=== PATIENT | male | born 1945 | race Caucasian/White ===

== ENCOUNTER 2022-01-01 09:00 | Day surgery (SDC) | payer MEDICARE, SELFPAY ==
[2022-01-01] VITALS (12 sets, daily range): BP systolic 66–122; BP diastolic 50–73; PULSE 62–91; RESP 14–18; TEMP 36.4–36.8; O2SAT 95–99; BMI 29.4
--- NOTE | 2022-01-01 | GASB_PTH ---
PATIENT: ENRIQUE MCGILL LOC: EN U#:[id number] AGE/SX: 76/M ROOM: RE01/01/[address]: Dr. Stuart Leos MD : 1945 BED: DIS: 01/01/2022 SPEC #: [id number] RECD: 01/01/22 10:49 STATUS: EDUARDO FINLEY #: [id number] [place]: 01/01/22 00:[address]: Stuart Leos DEPT: SURGICAL PATHOLOGY RECD BY: Ignacio Koehler ENTERED: 01/01/22 10:49 SP TYPE: Gastric Bx OTHR DR: Leti Villatoro, RUDOLPH Tissues: Gastric mucous membrane Procedures: Surgery Specimen Level IV HEADER OPERATION: Colonoscopy, EGD ([place]) with biopsies PRE-OP DIAGNOSIS: Blood per rectum TISSUE SUBMITTED: Antrum biopsy for H. pylori and path MICROSCOPIC DIAGNOSIS Antrum, biopsy: Mild gastritis. See microscopic description and comment. SJ:bryon 01/02/2022 COMMENT The results of immunohistochemistry for Helicobacter pylori will be reported separately ([id number]). MICROSCOPIC DESCRIPTION Slides are reviewed. The specimen shows fragments of gastric mucosa with chronic inflammatory cell infiltrates in the lamina propria consisting of lymphocytes and plasma cells, consistent with mild chronic gastritis. GROSS DESCRIPTION Received in fixative is one container labeled with the patient's name and designated antrum biopsy. The specimen consists of one irregular fragment of light plummer soft tissue that measures 0.5 x 0.2 x 0.1 cm. The specimen is totally submitted in one cassette. / TAYLOR:bryon 01/01/2022 TC:3 CPT: 45705
[2022-01-01] MEDS: Lactated Ringers 1,000 ML 15 ML IV ×2 (09:20→11:06)
--- NOTE | 2022-01-01 09:25 | HP.PCM_ITS ---
History and Physical Date of Admission: 01/01/22 Intake Vital Signs ? 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 Required: No Is patient in pain?: No Allergies No Known Allergies Allergy (Verified 12/29/21 14:16) Medications amoxicillin 500 mg capsule 500 mg PO TID 12/29/21 [History Confirmed 12/29/21] cyclobenzaprine 10 mg tablet 10 mg PO TID 12/29/21 [History] dapagliflozin 10 mg tablet (Farxiga) 10 mg PO DAILY 12/29/21 [History Confirmed 12/29/21] glimepiride 4 mg tablet mg PO 12/29/21 [History Confirmed 12/29/21] lisinopril 20 mg-hydrochlorothiazide 12.5 mg tablet tab PO 12/29/21 [History Confirmed 12/29/21] metformin 500 mg tablet,extended release 24 hr ea PO 12/29/21 [History Confirmed 12/29/21] naproxen 500 mg tablet 500 mg PO BID 12/29/21 [History] PFS Medical History?(Updated 12/29/21 @ 14:17 by Ne Vee) Diabetes mellitus Hiatal hernia History of colon polyps History of diverticulosis History of rectal cancer History of renal calculi HTN (hypertension) Hyperlipidemia Neuropathy Sleep apnea Surgical History?(Updated 12/29/21 @ 14:19 by Ne Vee) History of arthroscopic knee surgery History of cholecystectomy History of colonoscopy (~2018) History of colonoscopy (~2007) History of esophagogastroduodenoscopy (EGD) History of foot surgery History of nephrolithotomy with removal of calculi Status post ORIF of fracture of ankle Family History? Mother Hypertension Breast cancerFather Colon cancer Social History? Smoking Status:? Never smoker HPI HPI HPI: 76-year-old male with rectal bleeding.? The patient reports that he has been having copious bright red blood per rectum and this sometimes happens without even a bowel movement.? He reports that he stopped NSAIDs and the blood has become dark but he is also having dark stools as well.? He denies abdominal pain.? Patient has last colonoscopy about 3 years ago and found a rectal polyp.? According to records the patient had a rectal carcinoid in 2007. ROS General General: No weight change or fatigue HEENT HEENT: No difficulty swallowing Endo Endocrine: Yes diabetes mellitus; No thyroid disease Musc Musculoskeletal: Yes arthritis; No back problems Cardio Cardiovascular: Yes high blood pressure; No pacemaker, heart disease, atrial fibrillation, heart attack, heart stent, palpitations or chest pain Psych Psychiatric: No depression or anxiety Resp Respiratory: No shortness of breath, No cough, No COPD, No asthma and No emphysema Gastro Gastrointestinal: No abdominal pain, No nausea or vomiting, Yes diarrhea, No constipation, Yes blood in stool, No acid reflux, No hemorrhoids, No ulcers, No gallbladder problem and Yes black,tarry stools Alphonse Hematologic: No blood thinners Assessment and Plan Assessment and Plan (1) Blood per rectum: ?Status:?Acute ?Plan: Patient describes bright and dark blood per rectum.? Patient does have family history of colon cancer.? I recommend upper and lower endoscopy.? I explained endoscopy in detail to the patient.? I explained the risks including but not limited to stroke or heart attack with anesthesia, perforation of the GI tract, bleeding, infection.? I explained that any of these could necessitate further emergency surgery.? The patient understands and all questions were answered suf ficiently.? The patient wishes to proceed with procedure. Stuart Leos MD Pager: [facility] [address] [place] [address], [address] [place] [address] Office: I have re-examined the patient. There are no clinical changes since date of exam.
[2022-01-01 10:11] LABS: Bedside Glucose 165 mg/dL (74-106)
--- NOTE | 2022-01-01 10:15 | IMM_PTH ---
PATIENT: ENRIQUE MCGILL LOC: EN U#:[id number] AGE/SX: 76/M ROOM: RE01/01/[address]: Dr. Stuart Leos MD : 1945 BED: DIS: 01/01/2022 SPEC #: [id number] RECD: 01/01/22 11:27 STATUS: EDUARDO TUSHAR #: [id number] [place]: 01/01/22 10:[address]: Stuart Leos DEPT: IMMUNOHISTOCHEMISTRY RECD BY: Laila Walton ENTERED: 01/01/22 11:28 SP TYPE: IMMUNO OTHR DR: Leti Villatoro, VOCATIONAL INSTRUCTOR-C Tissues: Stomach, NOS Procedures: H Pylori (initial) PHYSICIAN & INSTITUTION [place] [id number] SPECIMEN INFORMATION: Tissue Source: Antrum biopsy Clinical Info: Blood per rectum Specimen Number: [id number] CPT code: 33183 METHODOLOGY: Deparaffinized sections of prefer/formalin-fixed tissue or PAP/DQ stained slides are incubated with monoclonal/polyclonal antibodies/oligonucleotide probes. Localization is made via biotin free immunoperoxidase method. Appropriate controls are performed and reacted as expected. Results on target cell population are indicated in the following table: RESULTS: ANTIBODY / CLONE RESULT H Pylori (polyclonal) negative These tests were developed and their performance characteristics determined by [facility]. They may not have been cleared or approved by the U.S. Food and Drug Administration. The FDA has determined that such clearance or approval is not necessary. The above immunohistochemical/dualISH markers are ordered and reviewed by the Pathologist. INTERPRETATION: Antrum, biopsy: Negative for Helicobacter pylori organisms. TAYLOR:bryon 01/02/2022
--- NOTE | 2022-01-01 10:31 | OP.CCLET_ITS ---
01/01/2022 Leti Villatoro Re : Colonoscopy procedure for Gonzalez Sanders Irving This procedure was performed on Saturday, January 01, 2022. My impressions and recommendations are as follows: Impressions : - The entire examined colon is normal on direct and retroflexion views. - No specimens collected. Recommendations : - Discharge patient to home. - Resume previous diet. - Continue present medications. - Repeat colonoscopy is not recommended due to current age (66 years or older) for screening purposes. My findings are described in the full procedure note, which is enclosed. If I can be of further assistance, please feel free to contact me at Doctor phone number(s): , Work: . Sincerely, Stuart Leos MD 01/01/2022 10:30:51 AM This report has been signed electronically.
--- NOTE | 2022-01-01 10:31 | OP.COLON_ITS ---
Patient Name: Gonzalez Pressley Procedure Date: 01/01/2022 10:14 AM Date of : 1945 Age: 76 Procedure: Colonoscopy Indications: Hematochezia Providers: Stuart Leos MD Referring MD: Leti Villatoro Medicines: Monitored Anesthesia Care Patient Profile: This is a 76 year old male. Refer to note in patient chart for documentation of history and physical. Last Colonoscopy: none. The patient's first colonoscopy is today. Complications: No immediate complications. Procedure: Pre-Anesthesia Assessment: - Prior to the procedure, a History and Physical was performed, and patient medications and allergies were reviewed. The patient's tolerance of previous anesthesia was also reviewed. The risks and benefits of the procedure and the sedation options and risks were discussed with the patient. All questions were answered, and informed consent was obtained. Prior Anticoagulants: The patient has taken no previous anticoagulant or antiplatelet agents. After reviewing the risks and benefits, the patient was deemed in satisfactory condition to undergo the procedure. After I obtained informed consent, the scope was passed under direct vision. Throughout the procedure, the patient's blood pressure, pulse, and oxygen saturations were monitored continuously. The was introduced through the anus and advanced to the cecum, identified by appendiceal orifice and ileocecal valve. The colonoscopy was performed without difficulty. The patient tolerated the procedure well. The quality of the bowel preparation was good. Scope In: 10:15:48 AM Scope Withdrawal Time 0 hours 4 minutes 12 seconds Scope Out: 10:22:12 AM Total Procedure Duration Time 0 hours 6 minutes 24 seconds Findings: The entire examined colon appeared normal on direct and retroflexion views. Many small and large-mouthed diverticula were found in the entire colon. Impression: - The entire examined colon is normal on direct and retroflexion views. - No specimens collected. Recommendation: - Discharge patient to home. - Resume previous diet. - Continue present medications. - Repeat colonoscopy is not recommended due to current age (66 years or older) for screening purposes. Procedure Code(s): --- Professional --- 74942, Colonoscopy, flexible; diagnostic, including collection of specimen(s) by brushing or washing, when performed (separate procedure) Diagnosis Code(s): --- Professional --- K92.1, Melena (includes Hematochezia) CPT copyright 2017 [employer]. All rights reserved. The codes documented in this report are preliminary and upon programming manager review may be revised to meet current compliance requirements. Stuart Leos MD 01/01/2022 10:30:51 AM This report has been signed electronically. Number of Addenda: 0 Note Initiated On: 01/01/2022 10:14 AM
--- NOTE | 2022-01-01 10:33 | OP.EGD_ITS ---
Patient Name: Gonzalez Pressley Procedure Date: 01/01/2022 10:03 AM Date of : 1945 Age: 76 Procedure: Upper GI endoscopy Indications: Hematochezia Providers: Stuart Leos MD Referring MD: Leti Villatoro Medicines: Monitored Anesthesia Care Patient Profile: This is a 76 year old male. Refer to note in patient chart for documentation of history and physical. Complications: No immediate complications. Procedure: Pre-Anesthesia Assessment: - Prior to the procedure, a History and Physical was performed, and patient medications and allergies were reviewed. The patient's tolerance of previous anesthesia was also reviewed. The risks and benefits of the procedure and the sedation options and risks were discussed with the patient. All questions were answered, and informed consent was obtained. Prior Anticoagulants: The patient has taken no previous anticoagulant or antiplatelet agents. After reviewing the risks and benefits, the patient was deemed in satisfactory condition to undergo the procedure. After obtaining informed consent, the endoscope was passed under direct vision. Throughout the procedure, the patient's blood pressure, pulse, and oxygen saturations were monitored continuously. The gastroscope was introduced through the mouth, and advanced to the second part of duodenum. The upper GI endoscopy was accomplished without difficulty. The patient tolerated the procedure well. Scope In: 10:11:06 AM Scope Out: 10:13:44 AM Total Procedure Duration Time 0 hours 2 minutes 38 seconds Findings: The esophagus was normal. The examined duodenum was normal. One non-bleeding cratered gastric ulcer with no stigmata of bleeding was found in the gastric antrum. Biopsies were taken with a cold forceps for Helicobacter pylori testing. Impression: - Normal esophagus. - Normal examined duodenum. - Non-bleeding gastric ulcer with no stigmata of bleeding. Biopsied. Recommendation: - Discharge patient to home. - Resume previous diet. - Continue present medications. - Use Prilosec (omeprazole) 40 mg PO daily for 8 weeks. - Use sucralfate tablets 1 gram PO QID for 2 weeks. Procedure Code(s): --- Professional --- 31310, Esophagogastroduodenoscopy, flexible, transoral; with biopsy, single or multiple Diagnosis Code(s): --- Professional --- K25.9, Gastric ulcer, unspecified as acute or chronic, without hemorrhage or perforation K92.1, Melena (includes Hematochezia) CPT copyright 2017 [employer]. All rights reserved. The codes documented in this report are preliminary and upon materials handling equipment operator review may be revised to meet current compliance requirements. Stuart Leos MD 01/01/2022 10:33:06 AM This report has been signed electronically. Number of Addenda: 0 Note Initiated On: 01/01/2022 10:03 AM
--- NOTE | 2022-01-01 10:33 | OP.CCLET_ITS ---
01/01/2022 Leti Villatoro Re : Upper GI endoscopy procedure for Gonzalez Villatoro This procedure was performed on Saturday, January 01, 2022. My impressions and recommendations are as follows: Impressions : - Normal esophagus. - Normal examined duodenum. - Non-bleeding gastric ulcer with no stigmata of bleeding. Biopsied. Recommendations : - Discharge patient to home. - Resume previous diet. - Continue present medications. - Use Prilosec (omeprazole) 40 mg PO daily for 8 weeks. - Use sucralfate tablets 1 gram PO QID for 2 weeks. My findings are described in the full procedure note, which is enclosed. If I can be of further assistance, please feel free to contact me at Doctor phone number(s): , Work: . Sincerely, Stuart Leos MD 01/01/2022 10:33:06 AM This report has been signed electronically.
== END 2022-01-01 12:07 | disposition home or self-care (01) ==
LOC: EN 09:03 → AC 09:06
PROVIDERS: PCP Nurse Practitioner Adult Health; Referring Provider Nurse Practitioner Adult Health; Visit Provider Surgery
PROC: 0DJD8ZZ Inspection of Lower Intestinal Tract, Via Natural or Artificial Opening Endoscopic (ICD-10-PCS; CPT 45378; principal; 2022-01-01 10:10)
DX: K29.50 Unspecified chronic gastritis without bleeding (principal); E11.9 Type 2 diabetes mellitus without complications; K57.30 Diverticulosis of large intestine without perforation or abscess without bleeding; K25.9 Gastric ulcer, unspecified as acute or chronic, without hemorrhage or perforation; G47.30 Sleep apnea, unspecified; I10 Essential (primary) hypertension; K92.1 Melena; Z79.899 Other long term (current) drug therapy; Z79.84 Long term (current) use of oral hypoglycemic drugs; Z80.0 Family history of malignant neoplasm of digestive organs
CPT/HCPCS: 43239; 45378; 82962; 88305; 88342; J7120; J2405

== ENCOUNTER 2024-06-09 16:00 | Inpatient (IN) | payer MEDICARE, SELFPAY ==
[2024-06-09] VITALS (7 sets, daily range): BP systolic 114–176; BP diastolic 66–88; PULSE 62–74; RESP 12–18; TEMP 36.3–36.8; O2SAT 94–98; BMI 29.7; BMI 28.9
[2024-06-09 19:14] LABS: Absolute Lymphocyte Count 0.99 X10^3/uL (0.83-4.51); Absolute Neutrophil Count 3.3 X10^3/uL (2.0-7.7); Basophil# 0.03 X10^3/uL; Basophil% 0.6 % (0-1); Eosinophil# 0.08 X10^3/uL; Eosinophils% 1.6 % (0-5); Hematocrit 49.1 % (40-54); Hemoglobin 16.5 g/dL (13.0-16.5); Lymphocyte # 0.99 X10^3/ul (0.83-4.51); Lymphocyte % 20.4 % (19-41); Mean Corp Hgb Conc 33.6 g/dL (32-36); Mean Corpuscular Hgb 30.1 pg (27.0-32.0); Mean Corpuscular Volume 89.4 fL (80-94); Mean Platelet Vol. 8.9 fl (6.2-12.0); Monocyte# 0.45 X10^3/uL; Monocyte% 9.3 % (0-10); NRBC Flagged by Analyzer 0 % (0-5); Neutrophil # 3.29 X10^3/uL (2.7-7.7); Neutrophil % 67.9 % (47-70); Platelet Count 196 K/mm3 (150-450); RBC Distribution Width SD 42.5 fl (35.1-43.9); Red Blood Count 5.49 M/mm3 (4.6-6.2); White Blood Count 4.9 K/mm3 (4.4-11.0)
[2024-06-09 19:46] LABS: Anion Gap 13 (5-15); BUN 21 mg/dL (4-19); BUN/Creat Ratio 18.2 RATIO (10-20); Calcium 9.4 mg/dL (7.6-11.0); Carbon Dioxide 23.2 mmol/L (22.0-29.0); Chloride 96 mmol/L (96-108); Creatinine, Serum 1.2 mg/dL (0.8-1.3); EST Glomerular Filtration Rate 65 (>60); Estimated Creatinine Clearance 54.06 ml/min; Glucose 119 mg/dL (70-99); Potassium 4.6 mmol/L (3.3-5.1); Sodium Level 133 mmol/L (133-145)
--- NOTE | 2024-06-09 20:06 | RAD_ITS ---
PROCEDURE: FOOT MIN 3 VIEWS REASON FOR EXAM: Pain; right foot infection. TECHNIQUE: 3 view(s) of the right foot COMPARISON: None. FINDINGS: RIGHT FOOT: No visible fracture. No suspicious bone lesion. No significant osseous erosions. Possible dislocation of the 2nd metatarsophalangeal joint which may be due to the angulation of the radiograph. Correlate with mechanism and physical examination. Soft tissues are unremarkable. 1st metatarsophalangeal joint fixation. RAD/Foot min 3 Views IMPRESSION: No evidence of acute fracture or significant erosions. Possible 2nd metatarsophalangeal joint dislocation versus radiograph angle. De tails above. Reading Location: [place] [id number]
--- NOTE | 2024-06-09 20:16 | EX.ED.DYSGE1 ---
HPI History of Present Illness Chief Complaint: Wound Narrative Narrative: Chief complaint and HPI: Right second toe infection. 78-year-old male with past medical history of right first toe surgery, DM, HTN presents for evaluation of right second toe infection. Patient states that he has been following with podiatry Dr. Smith for chronic right second toe pain. He states that his pain was thought to be caused from an artificial joint in the right first toe that is pushing on the second toe. Over the past several weeks he has had increased pain and swelling in the toe. He states that he got an outpatient MRI that showed infection of the toe. He states that he was referred to infectious disease Dr. Drummond. He states that he sent him here today for IV antibiotics and admission to the hospital. He denies any fever, chills, nausea, vomiting, numbness, tingling. He states he has had some increased redness over the past 2 days in the foot. Review of systems: See HPI Medications: As listed on the chart Allergies: As listed on the chart PFSH: Per chart Vital signs: As listed on the chart. Reviewed. Physical exam: Gen: A&O x3, NAD Head: Normocephalic, atraumatic Eyes: No sclera icterus, conjunctiva clear ENT: Moist mucous membranes Neck: Trachea midline, No JVD CV: RRR, no murmurs, no peripheral edema Resp: Lungs CTA BL, no w/r/c GI: Abd soft, non-distended, non-tender, no r/r/g Musc: Full ROM, no deformity, right second toe is mildly tender to palpation and mildly swollen, mild erythema of the toe extending up into the foot, no crepitus or bullae, no wound or drainage, DP/PT plus 2 out of 4, compartments soft, good capillary refill, callus on the plantar surface of the foot -does not appear infected Skin: Warm, dry Neuro: Alert, oriented, grossly intact, sensation intact Psych: Cooperative, appropriate mood and affect [facility] Medical History History of renal calculi History of rectal cancer Neuropathy Hiatal hernia Sleep apnea History of diverticulosis History of colon polyps Hyperlipidemia HTN (hypertension) Diabetes mellitus Home Medications ?Medication ?Instructions ?Recorded ?Last Taken ?Type dapagliflozin propanediol 10 mg 10 mg PO DAILY 12/29/21 Unknown History tablet (Farxiga) lisinopril 20 1 tab PO DAILY 12/29/21 Unknown History mg-hydrochlorothiazide 12.5 mg tablet metformin 500 mg tablet,extended 500 ea PO DAILY 12/29/21 Unknown History release 24 hr glimepiride 2 mg tablet 2 mg PO DAILY 06/09/24 Unknown History sulfamethoxazole 800 1 tab PO Q12.TCU 06/09/24 Unknown History mg-trimethoprim 160 mg tablet Allergy/AdvReac Type Severity Reaction Status Date / Time No Known Allergies Allergy Verified 06/09/24 19:20 Family History Mother Hypertension Breast cancer Father Colon cancer Surgical History History of colonoscopy (~2007) Status post ORIF of fracture of ankle History of foot surgery History of arthroscopic knee surgery History of nephrolithotomy with removal of calculi History of esophagogastroduodenoscopy (EGD) History of cholecystectomy History of colonoscopy (~2018) Social History Smoking Status: Never smoker EXAM Physical Exam Const Vital Signs: 06/09/24 16:03 06/09/24 19:10 06/09/24 20:00 Temperature 98.3 F 98.2 F Temperature Source Oral Oral Pulse Rate 67 73 63 Respiratory Rate 18 16 16 Blood Pressure 155/80 H 176/84 H 144/88 H Blood Pressure Mean 105 114 106 Pulse Ox 96 98 98 Oxygen Delivery Method Room Air Room Air 06/09/24 20:50 06/09/24 21:00 06/09/24 22:00 Temperature 97.4 F L 97.8 F 97.8 F Temperature Source Oral Oral Pulse Rate 62 67 74 Respiratory Rate 12 16 16 Blood Pressure 148/88 H 121/67 H 114/72 Blood Pressure Mean 108 85 86 Pulse Ox 97 97 97 Oxygen Delivery Method Room Air Room Air MDM MDM MDM Narrative Medical decision making narrative: 78-year-old male with past medical history of right first toe surgery, DM, HTN presents for evaluation of right second toe infection. Patient states that he had an outpatient MRI that showed infection. He has the disc available but no read. On chart review, I do not have the MRI or his previous x-ray of his foot. I spoke with radiology who will upload the MRI in our system. Differential diagnosis includes but is not limited to osteomyelitis, cellulitis, bacteremia. Basic labs ordered including blood cultures. Will contact Dr. Drummond. Dr. Drummond stated that the patient was referred to his office today for MRI that showed osteomyelitis. Patient has been on Bactrim for 1 week. Patient endorsed increased pain and redness over the past 2 days so infectious disease recommendations were admission to the hospital with IV antibiotics and podiatry for possible surgery. Given this new information, vancomycin and Zosyn ordered. CBC without leukocytosis or anemia. Lactic acid unremarkable. X-ray of the foot was personally reviewed by me, ED physician. No fracture or dislocation. Per radiology, no significant osseous erosions. Possible dislocation of the second metatarsal phalangeal joint which may be due to the angulation of the radiograph. This does not correlate with patient's physical exam. Patient will warrant admission for IV antibiotics and podiatry consult. Patient updated of all her results and confirmed understanding of the plan. Patient was discussed with Dr. Lindsey accepted admission. Impression: 1. Osteomyelitis of the right second toe Lab Data Labs: Laboratory Results - last 24 hr 06/09/24 06/09/24 19:10 20:15 WBC 4.9 RBC 5.49 Hgb 16.5 Hct 49.1 MCV 89.4 MCH 30.1 MCHC 33.6 RDW Std Deviation 42.5 RDW Coeff of Chad 13.0 Plt Count 196 MPV 8.9 Immature Gran % (Auto) 0.200 Neut % (Auto) 67.9 Lymph % (Auto) 20.4 Zapata % (Auto) 9.3 Eos % (Auto) 1.6 Baso % (Auto) 0.6 Absolute Neuts (auto) 3.3 Absolute Lymphs (auto) 0.99 Nucleated RBC % 0 Sodium 133 Potassium 4.6 Anion Gap 13 BUN 21 H Creatinine 1.2 Estim Creat Clear Calc 54.06 Est GFR (MDRD) Non-Af 65 BUN/Creatinine Ratio 18.2 Glucose 119 H Lactic Acid < 1.0 Calcium 9.4 Magnesium 2.2 Radiography Diagnostic Testing: Clinical Impression(s) from Imaging Studies Foot X-Ray 06/09/24 20:06 IMPRESSION: No evidence of acute fracture or significant erosions. Possible 2nd metatarsophalangeal joint dislocation versus radiograph angle. Details above. Reading Location: [id number] Discharge Plan Disposition Disposition: Acute Care Hospital [facility] Discharge Date/Time: 06/09/24 23:04
[2024-06-09] MEDS: 0.9% Normal Saline (1000mL) 1,000 ML 1000 ML IV (20:20)
[2024-06-09] MEDS: Piperacil/Tazobactam 4.5 GM in 0.9% Normal Saline (100mL MB+) 100 ML IV (20:49)
[2024-06-09 21:31] LABS: Lactic Acid < 1.0 mmol/L (0.0-2.0)
[2024-06-09] MEDS: Vancomycin HCl 2,000 MG in 0.9% Normal Saline (500mL Bag) 500 ML 250 MG IV (21:46)
--- NOTE | 2024-06-09 22:13 | PCM.HP.STD ---
[facility] - General General Date of Admission: 06/09/24 Date of Service: 06/09/24 Chief Complaint: Right 2nd Toe Wound with Osteomyelitis and Septic Arthritis. HPI Narrative ENRIQUE PRESSLEY, is a 78 M with a past medical history of essential hypertension; on lisinopril-hydrochlorothiazide, hyperlipidemia; currently untreated, overweight; with BMI of 29.8 this admission, FAUSTINO; on CPAP, DM-2; of unknown control on metformin, glimepiride and dapagliflozin, diabetic neuropathy, history of artificial joint placement in the great toe of the Right foot, history of ankle fracture; s/p ORIF, history of arthroscopic knee surgery, history of rectal cancer, history of rectal bleed (2021), history of diverticulosis, history of colon polyps, history of hiatal hernia, history of nephrolithotomy; with removal of calculi, history of cholecystectomy and history of Right 2nd toe infection; on TMP-SMX BID, followed by Dr. Troncoso of podiatry with a recent office visit to Dr. Drummond of infectious disease who instructed the patient to come to the ER for IV antibiotics and admission to the hospital. Mr. 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 Unfortunately, the pain continued to worsen with increasing redness and swelling of the 2nd toe and he was then sent for an MRI which allegedly revealed evidence of osteomyelitis and septic arthritis resulting in him being sent in for further evaluation and treatment. He denies associated fever, chills, nausea, vomiting, diarrhea, constipation, abdominal pain, chest pain, SOB, headache or paresthesias. In the ER he was diagnosed with Right 2nd Toe Osteomyelitis and Septic Arthritis and he was then admitted to the general medical floor for ongoing care for a stay that is expected to extend beyond 2 midnights. [facility] Medical History History of renal calculi History of rectal cancer Neuropathy Hiatal hernia Sleep apnea History of diverticulosis History of colon polyps Hyperlipidemia HTN (hypertension) Diabetes mellitus Home Medications ?Medication ?Instructions ?Recorded ?Last Taken ?Type dapagliflozin propanediol 10 mg 10 mg PO DAILY 12/29/21 Unknown History tablet (Farxiga) lisinopril 20 1 tab PO DAILY 12/29/21 Unknown History mg-hydrochlorothiazide 12.5 mg tablet metformin 500 mg tablet,extended 500 ea PO DAILY 12/29/21 Unknown History release 24 hr glimepiride 2 mg tablet 2 mg PO DAILY 06/09/24 Unknown History sulfamethoxazole 800 1 tab PO Q12.TCU 06/09/24 Unknown History mg-trimethoprim 160 mg tablet Allergy/AdvReac Type Severity Reaction Status Date / Time No Known Allergies Allergy Verified 06/09/24 19:20 Family History Mother Hypertension Breast cancer Father Colon cancer Surgical History History of colonoscopy (~2007) Status post ORIF of fracture of ankle History of foot surgery History of arthroscopic knee surgery History of nephrolithotomy with removal of calculi History of esophagogastroduodenoscopy (EGD) History of cholecystectomy History of colonoscopy (~2018) Social History Smoking Status: Never smoker ROS ROS Narrative Review of Systems: Constitutional: Patient denies fever or chills. Eyes: Patient denies changes in vision or discharge from eyes. ENT: Patient denies runny nose, sore throat or ear pain. Resp: Patient denies SOB or cough. CV: Patient denies chest pain, palpitations or heart racing. GI: Patient denies abdominal pain, nausea, vomiting, diarrhea or constipation. : Patient denies dysuria or hematuria. MSK: Patient admits to pain from his Right 2nd toe. Skin: Patient admits to swelling and erythema of the Right 2nd toe with pain made worse with palpation or movement. Psych: Patient denies symptoms of uncontrolled depression or anxiety. Neuro: Patient denies headache, paresthesias or focal neurologic deficits. Allergy: Patient denies lip swelling, tongue swelling or urticaria. Hematology: Patient denies easy bleeding or easy bruisability. Endocrinology: Patient denies polyuria, polydipsia or polyphagia. 14 point ROS otherwise negative except for positives noted above in HPI. Vital Signs Vital Signs Vital Signs: 06/09/24 16:03 06/09/24 19:10 06/09/24 20:00 Temperature 98.3 F 98.2 F Temperature Source Oral Oral Pulse Rate 67 73 63 Respiratory Rate 18 16 16 Blood Pressure 155/80 H 176/84 H 144/88 H Blood Pressure Mean 105 114 106 Pulse Ox 96 98 98 Oxygen Delivery Method Room Air Room Air 06/09/24 20:50 06/09/24 21:00 Temperature 97.4 F L 97.8 F Temperature Source Oral Pulse Rate 62 67 Respiratory Rate 12 16 Blood Pressure 148/88 H 121/67 H Blood Pressure Mean 108 85 Pulse Ox 97 97 Oxygen Delivery Method Room Air Weight Weight: 190 lb Body Mass Index (BMI) 29.7 Physical Exam Const alert, oriented x3, no apparent distress and average body habitus General Appearance: cooperative HEENT normocephalic, head/scalp atraumatic, hearing grossly normal bilaterally and moist oral mucous membranes Eyes PERRL, EOMs intact bilaterally and conjunctivae normal Neck no lymphadenopathy, supple and no JVD Resp normal respiratory effort, no retractions, no use of accessory muscles and clear to auscultation bilaterally Cardio regular rate and regular rhythm GI normal to inspection, nondistended, normoactive bowel sounds, soft to palpation, non-tender and non-distended Extremity Extremity Narrative: Right 2nd toe is erythematous and edematous with TTP and mild erythema extending up into the foot with no open wound or drainage and 2+/4 pulses throughout. Skin Skin Narrative: Right 2nd toe is erythematous and edematous with TTP and mild erythema extending up into the foot with no open wound or drainage and 2+/4 pulses throughout. Neuro oriented x3, CN's II-XII intact bilaterally, moves all extremities and no focal motor deficits Sensorium / Orientation: awake, alert, oriented to person, oriented to place and oriented to time Speech: speech normal Psych affect normal Results Medical Records Data Attestation: I reviewed the patient's medical records Lab / Micro Data Attestation: I reviewed the patient's lab results. 06/09/24 19:10 06/09/24 19:10 Labs: Laboratory Results - last 24 hr 06/09/24 19:10: WBC 4.9, RBC 5.49, Hgb 16.5, Hct 49.1, MCV 89.4, MCH 30.1, MCHC 33.6, RDW Std Deviation 42.5, RDW Coeff of Chad 13.0, Plt Count 196, MPV 8.9, Immature Gran % (Auto) 0.200, Neut % (Auto) 67.9, Lymph % (Auto) 20.4, Burnett % (Auto) 9.3, Eos % (Auto) 1.6, Baso % (Auto) 0.6, Absolute Neuts (auto) 3.3, Absolute Lymphs (auto) 0.99, Nucleated RBC % 0, Sodium 133, Potassium 4.6, Anion Gap 13, BUN 21 H, Creatinine 1.2, Estim Creat Clear Calc 54.06, Est GFR (MDRD) Non-Af 65, BUN/Creatinine Ratio 18.2, Glucose 119 H, Calcium 9.4 06/09/24 20:15: Lactic Acid < 1.0 Imaging [facility] Imaging Services [address] [place] [address] Foot min 3 Views MR#: [id number] Acct: [id number] Name: ENRIQUE PRESSLEY Rep #: [id number] : 1945 M 78 From: Timothy Blanco MD PCP: YVES CooperC Status: ADM IN Study: Foot min 3 Views Date of Exam: 06/09/24 Exam# [id number] Ordering Dr: Sabino Mcarthur DO PROCEDURE: FOOT MIN 3 VIEWS REASON FOR EXAM: Pain; right foot infection. TECHNIQUE: 3 view(s) of the right foot COMPARISON: None. FINDINGS: RIGHT FOOT: No visible fracture. No suspicious bone lesion. No significant osseous erosions. Possible dislocation of the 2nd metatarsophalangeal joint which may be due to the angulation of the radiograph. Correlate with mechanism and physical examination. Soft tissues are unremarkable. 1st metatarsophalangeal joint fixation. RAD/Foot min 3 Views IMPRESSION: No evidence of acute fracture or significant erosions. Possible 2nd metatarsophalangeal joint dislocation versus radiograph angle. Details above. Reading Location: [id number] Assessment & Plan Assessment/Plan (1) Osteomyelitis: QUALIFIERS: Laterality: right Osteomyelitis location: foot Osteomyelitis type: unspecified type Qualified Code(s): M86.9 - Osteomyelitis, unspecified (2) Septic arthritis: QUALIFIERS: Laterality: right Septic arthritis location: foot Septic arthritis organism: due to unspecified organism Qualified Code(s): M00.9 - Pyogenic arthritis, unspecified (3) Diabetic foot ulcer: QUALIFIERS: Diabetes mellitus type: type 2 Diabetic foot ulcer location: toe Laterality: right Non-pressure ulcer stage: unspecified non-pressure ulcer stage Qualified Code(s): E11.621 - Type 2 diabetes mellitus with foot ulcer; L97.519 - Non-pressure chronic ulcer of other part of right foot with unspecified severity (4) Diabetes mellitus: QUALIFIERS: Diabetes mellitus complication detail: with foot ulcer Diabetes mellitus complication status: with skin complications Diabetes mellitus 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 Right 2nd Toe Osteomyelitis and Septic Arthritis in the setting of Failed Outpatient Antibiotic Treatment on TMP-SMX - Admit to general medical floor. Continue broad-spectrum antibiotics with IV piperacillin-tazobactam and IV vancomycin and await culture and sensitivity data. Give acetaminophen prn for [id number] (level 1-5/10) pain or fever. Give morphine IV prn for severe (level 6-10/10) pain. Give supplemental vitamin D3, vitamin C, zinc and probiotic to help boost immunity and hopefully speed recovery. Finally, we will consult podiatry and infectious disease to see this patient on-rounds in the AM for further recommendations with help appreciated in advance. 2. DM-2; of unknown control on metformin, glimepiride and dapagliflozin with diabetic neuropathy complicating #1 - Keep NPO for now with likely impending podiatric surgery. FSBS q. 6 hours plus SSI of lowest intensity. Hold oral hypoglycemics. 3. History of Right 2nd toe infection; followed by Dr. Troncoso of podiatry with history of artificial joint placement in the great toe of the Right foot with a recent office visit to Dr. Drummond of infectious disease who instructed the patient to come to the ER for IV antibiotics and admission to the hospital compounding #1 & #2 - Noted. 4. Overweight; with BMI of 29.8 this admission plus FAUSTINO; on CPAP - Weight loss will be recommended. Check TSH. Resume nocturnal CPAP as previous. 5. Essential Hypertension; on lisinopril-hydrochlorothiazide - Maintain home regimen. 6. Hyperlipidemia; currently untreated - Check Lipid Profile to reassess status in light of #1. 7. History of ankle fracture; s/p ORIF - Noted. 8. History of arthroscopic knee surgery - Noted. 9. History of rectal cancer - Noted. 10. History of rectal bleed (2021) - Stable with no evidence of recurrence this admission. 11. History of diverticulosis - Noted. 12. History of colon polyps - Noted. 13. History of hiatal hernia - Noted. 14. History of nephrolithotomy; with removal of calculi - Noted. 15. History of cholecystectomy - Noted. 16. DVT prophylaxis - Lovenox 40 mg sq daily plus SCD's. Total time: Approximately (but not less than) 75 minutes. Charges/Coding Visit Charges Inpatient E&M: 55448 Init Hosp L3
[2024-06-09 23:45] LABS: Magnesium 2.2 mg/dL (1.5-2.2)
[2024-06-09 23:59] LABS: Bedside Glucose 91 mg/dL (74-106)
[2024-06-10] MEDS: 0.9% Normal Saline (1000mL) 1,000 ML 70 ML IV (00:42)
--- NOTE | 2024-06-10 03:35 | PCM.RX.CS ---
Consult Antibiotic Management Pharmacy has been consulted to manage selected antibiotic: Vancomycin Type of Intervention Type of Consult: Follow-up Labs Labs: Sodium 133 mmol/L (133-145) 06/09/24 19:10 Potassium 4.6 mmol/L (3.3-5.1) 06/09/24 19:10 Anion Gap 13 (5-15) 06/09/24 19:10 BUN 21 mg/dL (4-19) H 06/09/24 19:10 Creatinine 1.2 mg/dL (0.8-1.3) 06/09/24 19:10 Est GFR (MDRD) Non-Af 65 (>60) 06/09/24 19:10 BUN/Creatinine Ratio 18.2 RATIO (10-20) 06/09/24 19:10 Glucose 119 mg/dL (70-99) H 06/09/24 19:10 Goal Trough Goal Trough: 15-20 mcg/mL Pharmacy Plan for Drug Dosing Pharmacy Plan for Drug Dosing: Pharmacy Service will continue to monitor and adjust dosing as required. ER DOSE 2GM GIVEN 06/09 @ 2146. START 750MG Q12H AND DRAW TROUGH PRIOR TO 4TH DOSE Follow-Up Labs Follow-Up Labs: Trough: Vancomycin Date/Time Labs Ordered Labs to be done on [date and time ordered]: 06/11 @ 7641
[2024-06-10 05:12] VITALS: BMI 30.2
[2024-06-10 05:19] VITALS: BP 148/64; PULSE 62; RESP 18; TEMP 36.9; O2SAT 95
[2024-06-10] MEDS: 0.9% Normal Saline (100mL Bag) 100 ML 15 ML IV (05:21)
[2024-06-10] MEDS: Piperacil/Tazobactam 3.375 GM in 0.9% Normal Saline (50mL MB+) 50 ML IV (05:23)
[2024-06-10 05:54] LABS: Bedside Glucose 104 mg/dL (74-106)
[2024-06-10 07:29] LABS: Absolute Lymphocyte Count 0.65 X10^3/uL (0.83-4.51); Absolute Neutrophil Count 3.9 X10^3/uL (2.0-7.7); Basophil# 0.03 X10^3/uL; Basophil% 0.6 % (0-1); Eosinophil# 0.16 X10^3/uL; Eosinophils% 3.1 % (0-5); Hemoglobin 15.8 g/dL (13.0-16.5); Lymphocyte # 0.65 X10^3/ul (0.83-4.51); Lymphocyte % 12.4 % (19-41); Mean Corp Hgb Conc 33.6 g/dL (32-36); Mean Corpuscular Hgb 29.6 pg (27.0-32.0); Mean Platelet Vol. 8.8 fl (6.2-12.0); Monocyte# 0.48 X10^3/uL; Monocyte% 9.2 % (0-10); NRBC Flagged by Analyzer 0 % (0-5); Neutrophil # 3.91 X10^3/uL (2.7-7.7); Neutrophil % 74.5 % (47-70); Platelet Count 186 K/mm3 (150-450); RBC Distribution Width CV 13.1 % (11.6-14.6); RBC Distribution Width SD 42.3 fl (35.1-43.9); Red Blood Count 5.34 M/mm3 (4.6-6.2); White Blood Count 5.2 K/mm3 (4.4-11.0)
[2024-06-10 08:15] VITALS: BP 124/80; PULSE 71; RESP 16; TEMP 36.6; O2SAT 95
[2024-06-10 09:05] LABS: ALB/GLOB Ratio 1.5 RATIO (0.9-2.4); AST(SGOT) 28 U/L (<=37); Alanine Aminotransfer ALT/SGPT 17 U/L (<=46); Albumin, Serum 3.8 g/dL (3.4-4.8); Alkaline Phosphatase 76 U/L (40-129); Anion Gap 14 (5-15); BUN 17 mg/dL (4-19); BUN/Creat Ratio 18.2 RATIO (10-20); Calcium 8.6 mg/dL (7.6-11.0); Carbon Dioxide 17.8 mmol/L (22.0-29.0); Chloride 102 mmol/L (96-108); Cholesterol 162 mg/dL (<=200); Creatinine, Serum 0.9 mg/dL (0.8-1.3); EST Glomerular Filtration Rate 83 (>60); Estimated Creatinine Clearance 72.51 ml/min; Globulin 2.5 g/dL (2.2-4.2); Glucose 115 mg/dL (70-99); High Density Lipoprotein 29 mg/dL; Low Density Lipoprotein Calc. 107 mg/dL; Potassium 4.3 mmol/L (3.3-5.1); Protein, Total 6.3 g/dL (5.9-8.4); Sodium Level 133 mmol/L (133-145); Triglycerides 130 mg/dL; Very Low Density Lipoprotein 26 mg/dL (5-40); cholesterol:hdl ratio screen 5.64
[2024-06-10 11:00] VITALS: BP 141/65; PULSE 66; RESP 15; TEMP 36.7; O2SAT 96
[2024-06-10] MEDS: Vancomycin HCl 750 MG in 0.9% Normal Saline (250mL Bag) 250 ML 250 MG IV ×2 (11:09→21:12)
[2024-06-10] MEDS: Folic Acid 1 MG Tablet PO (12:16)
[2024-06-10] MEDS: Lactobacillis Acidophilus 1 CAP PO ×4 (12:17→19:52)
[2024-06-10] MEDS: Ascorbic Acid 500 MG Tablet 1000 MG PO ×2 (12:17→17:08)
[2024-06-10] MEDS: hydroCHLOROthiazide 12.5mg 12.5 MG PO (12:17)
[2024-06-10] MEDS: Enoxaparin 40 MG/0.4 ML Syringe SC (12:18)
[2024-06-10] MEDS: Lisinopril 20 MG Tablet PO (12:19)
[2024-06-10] MEDS: Zinc Sulfate 50 mg zinc (220 mg) ORAL capsule PO (12:19)
[2024-06-10] MEDS: Cholecalciferol (Vit D3) 125 MCG CAPSULE (5,000 UNITS) PO (12:19)
[2024-06-10 12:22] LABS: Bedside Glucose 92 mg/dL (74-106)
--- NOTE | 2024-06-10 12:23 | PCM.CONS.GEN ---
Assessment & Plan Assessment/Plan (1) Diabetic foot ulcer: QUALIFIERS: Diabetic foot ulcer location: toe Diabetes mellitus type: type 2 Laterality: right Non-pressure ulcer stage: unspecified non-pressure ulcer stage Qualified Code(s): E11.621 - Type 2 diabetes mellitus with foot ulcer; L97.519 - Non-pressure chronic ulcer of other part of right foot with unspecified severity (2) Acute osteomyelitis of right foot: PLAN: Plan Evaluation performed. Reviewed MRI from 05/27/24 of his right foot, also reviewed new right foot xrays. Discussed options with patient - he has pain to right 2nd MTPJ with evidence of infection and osteomyelitis - discussed antibiotic therapy and also discussed surgical intervention - from surgical standpoint we discussed amputation of 2nd toe and resection of 2nd metatarsal. Reviewed procedure, possible benefits vs risks, goals, expectations, alternative options as well. He relates he would like to proceed with this surgery, we will plan for tomorrow. Patient will be NPO after midnight. Patient is on IV antibiotics Vancomycin and Zosyn - Dr. Drummond on consult. Podiatry will continue to follow, with surgical plans for tomorrow as noted above. HPI Consult Data Date of Consult: 06/10/24 HPI Narrative Reason for Consultation: Infection right foot HPI Narrative: ENRIQUE MCGILL, is a 78 M who presents with redness and swelling of right foot. He also relates there is pain when walking to the foot - points to level of 2nd MTPJ right foot. He has hx of diabetes, relates last ha1c was 7.8. 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 He relates he saw Dr. Shaw, was considering having 2nd metetarsal osteotomy but due to insurance reasons when to see Dr. Smith in [place], relates he recommended against the surgery and rather patient should use metatarsal pads. Despite this foot worsened and MRI was obtained on 05/27/24 and patient was referred to Infectious Disease. Patient saw Dr. Drummond yesterday and was sent to hospital for IV antibiotics due to infection and osteomyelitis. MRI from 05/27/24 showed findings consistent with osteomyelitis of the 2nd ray on his right foot. Patient has hx of 1st MTPJ implant. He has history of ulceration sub 2nd MTPJ on his right foot. He has been admitted and has been started on IV antibiotics. [facility] Medical History History of renal calculi History of rectal cancer Neuropathy Hiatal hernia Sleep apnea History of diverticulosis History of colon polyps Hyperlipidemia HTN (hypertension) Diabetes mellitus Home Medications ?Medication ?Instructions ?Recorded ?Last Taken ?Type dapagliflozin propanediol 10 mg 10 mg PO DAILY 12/29/21 Unknown History tablet (Farxiga) lisinopril 20 1 tab PO DAILY 12/29/21 Unknown History mg-hydrochlorothiazide 12.5 mg tablet metformin 500 mg tablet,extended 500 ea PO DAILY 12/29/21 Unknown History release 24 hr glimepiride 2 mg tablet 2 mg PO DAILY 06/09/24 Unknown History sulfamethoxazole 800 1 tab PO Q12.TCU 06/09/24 Unknown History mg-trimethoprim 160 mg tablet Allergy/AdvReac Type Severity Reaction Status Date / Time No Known Allergies Allergy Verified 06/09/24 19:20 Family History Mother Hypertension Breast cancer Father Colon cancer Surgical History History of colonoscopy (~2007) Status post ORIF of fracture of ankle History of foot surgery History of arthroscopic knee surgery History of nephrolithotomy with removal of calculi History of esophagogastroduodenoscopy (EGD) History of cholecystectomy History of colonoscopy (~2018) Social History Smoking Status: Never smoker Physical Exam Const alert, oriented x3 and no apparent distress Constitutional Narrative: There is noted to be edema and erythema to his right foot mostly at 2nd toe, there is a small wound plantar 2nd MTPJ with callus formation, there is no visible necrosis or abscess, no crepitus, no fluctuance, there is dorsal dislocation of 2nd toe on 2nd MTPJ and 2nd toe does not purchase, there are no other open lesions. CFT < seconds to all toes on right foot with palpable pedal pulses right foot. DJD to joints of foot, right. Lab / Micro Data 06/10/24 07:23 06/10/24 07:23 Labs: Laboratory Results - last 24 hr 06/09/24 19:10: WBC 4.9, RBC 5.49, Hgb 16.5, Hct 49.1, MCV 89.4, MCH 30.1, MCHC 33.6, RDW Std Deviation 42.5, RDW Coeff of Chad 13.0, Plt Count 196, MPV 8.9, Immature Gran % (Auto) 0.200, Neut % (Auto) 67.9, Lymph % (Auto) 20.4, [place] % (Auto) 9.3, Eos % (Auto) 1.6, Baso % (Auto) 0.6, Absolute Neuts (auto) 3.3, Absolute Lymphs (auto) 0.99, Nucleated RBC % 0, Sodium 133, Potassium 4.6, Anion Gap 13, BUN 21 H, Creatinine 1.2, Estim Creat Clear Calc 54.06, Est GFR (MDRD) Non-Af 65, BUN/Creatinine Ratio 18.2, Glucose 119 H, Calcium 9.4, Magnesium 2.2 06/09/24 20:15: Lactic Acid < 1.0 06/09/24 23:41: POC Glucose 91 06/10/24 05:26: POC Glucose 104 06/10/24 07:23: WBC 5.2, RBC 5.34, Hgb 15.8, Hct 47.0, MCV 88.0, MCH 29.6, MCHC 33.6, RDW Std Deviation 42.3, RDW Coeff of Chad 13.1, Plt Count 186, MPV 8.8, Immature Gran % (Auto) 0.200, Neut % (Auto) 74.5 H, Lymph % (Auto) 12.4 L, [place] % (Auto) 9.2, Eos % (Auto) 3.1, Baso % (Auto) 0.6, Absolute Neuts (auto) 3.9, Absolute Lymphs (auto) 0.65 L, Nucleated RBC % 0, Sodium 133, Potassium 4.3, Chloride Direct 102, Carbon Dioxide 17.8 L, Anion Gap 14, BUN 17, Creatinine 0.9, Estim Creat Clear Calc 72.51, Est GFR (MDRD) Non-Af 83, BUN/Creatinine Ratio 18.2, Glucose 115 H, Calcium 8.6, Phosphorus 3.0, Total Bilirubin 0.50, AST 28, ALT 17, Alkaline Phosphatase 76, Total Protein 6.3, Albumin 3.8, Globulin 2.5, Albumin/Globulin Ratio 1.5, Triglycerides 130, Cholesterol 162, VLDL Cholesterol 26, HDL Cholesterol 29 L, Cholesterol/HDL Ratio 5.64, TSH 3.600 06/10/24 12:02: POC Glucose 92 Imaging Radiology Impression Foot X-Ray 06/09/24 20:06 IMPRESSION: No evidence of acute fracture or significant erosions. Possible 2nd metatarsophalangeal joint dislocation versus radiograph angle. Details above. Reading Location: [place] [address]
--- NOTE | 2024-06-10 12:58 | WOUNDNOTE ---
wound photo: right foot
--- NOTE | 2024-06-10 12:59 | WOUNDNOTE ---
wound photo: right foot
[2024-06-10] MEDS: metroNIDAZOLE 500 MG Tablet PO ×2 (14:02→19:52)
[2024-06-10] MEDS: Ceftriaxone 2 GM in 0.9% Normal Saline (50mL MB+) 50 ML IV (14:06)
--- NOTE | 2024-06-10 14:20 | CASEMGMT ---
?RN CM FLIGHT PURSER CM?to room to meet with patient for initial transition planning/care coordination assessment. RN CM?introduced self and role at [facility]. Pt voices understanding and consents to assessment?at this time. Pt sitting up in chair in room in no distress at this time. Pt is A/O at this time and answers all questions appropriately. Care providers, pharmacy, and demographics verified/updated at this time. Strata:?2 PCP: CARMEN Villatoro Specialists: Dr Drummond-YOU, CARMEN Rodriguez-binding nicker @ [facility] Preferred Pharmacy: [facility] [place] Otherwise goes to [facility] Insurance: [employer] Prescription Benefit: yes LNOK: , Kenny Living Arrangements: Lives w/ in 2-story home w/no steps to enter. [employer]. Independent Transportation:?Pt states drives self and states no transportation concerns at this time. also drives. ( had ankle surgery about 6 wks ago and was able to start driving again today). DME: States has the following DME: functioning CGM w/supplies. Pt also has back-up glucometer w/supplies. He has the following DME available but does not use: shower chair, walker, cane, lift chair, raised toilet Pt states no need for further DME at this time. HHC/SNF: No hx of SNF. Had a couple visits from [facility] in the past. Has done OP therapy in [place] in the past. Discussed discharge planning. Questions answered. Pt wishes to return home and states has no concerns with going home at time of discharge. He states if IV atb's are needed, he would like [facility] and declines wanting list of other [facility] options unless [facility] unable to accept. He states to use [facility] for infusion co. 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 CM?to follow for any discharge planning/needs. Pt voices no further concerns/needs at this time. Advised pt to ask for CM?if any further questions/concerns/needs arise. Voices understanding. PLAN: Home. Follow for any IV atb's @ discharge. Onesimo MCPHERSON RN, CM
--- NOTE | 2024-06-10 14:32 | PCM.CONS.GEN ---
Assessment & Plan Assessment/Plan (1) Septic arthritis: QUALIFIERS: Septic arthritis location: foot Septic arthritis organism: due to unspecified organism Laterality: right Qualified Code(s): M00.9 - Pyogenic arthritis, unspecified PLAN: MRI 05/27/24 in [facility] system with R 2nd toe osteo and septic arthritis. Cellulitis improved. Podiatry consulted, and pt is interested in surgery. Will narrow to vanc/ceftriaxone/flagyl. Will follow, thank you (2) Osteomyelitis: QUALIFIERS: Osteomyelitis type: unspecified type Osteomyelitis location: foot Laterality: right Qualified Code(s): M86.9 - Osteomyelitis, unspecified (3) Diabetes mellitus: QUALIFIERS: Diabetes mellitus type: type 2 Diabetes mellitus long chain beamer insulin use: without long chain beamer use Diabetes mellitus complication status: with skin complications Diabetes mellitus complication detail: with foot ulcer Qualified Code(s): E11.621 - Type 2 diabetes mellitus with foot ulcer; L97.509 - Non-pressure chronic ulcer of other part of unspecified foot with unspecified severity HPI Consult Data Date of Consult: 06/10/24 HPI Narrative Reason for Consultation: osteo HPI Narrative: ENRIQUE MCGILL, is a 78 M with h/o DM, had a few months of R 2nd toe swelling and callus under foot. Remote h/o R 1st toe hardware placement. Saw Dr. Smith with podiatry as outpt, MRI 05/27/24 showed osteo and septic arthritis. Started on po bactrim over past week, then had 2 days new redness/swelling of toe and streaking up dorsal foot. Referred to ID and saw me in office yesterday. Recommend ED eval, IV abx. Feeling ok today, foot less red, saw podiatry, would like to have surgery. No fever. Full ROS performed and neg except as noted above. [facility] Medical History History of renal calculi History of rectal cancer Neuropathy Hiatal hernia Sleep apnea History of diverticulosis History of colon polyps Hyperlipidemia HTN (hypertension) Diabetes mellitus Home Medications ?Medication ?Instructions ?Recorded ?Last Taken ?Type dapagliflozin propanediol 10 mg 10 mg PO DAILY 12/29/21 Unknown History tablet (Farxiga) lisinopril 20 1 tab PO DAILY 12/29/21 Unknown History mg-hydrochlorothiazide 12.5 mg tablet metformin 500 mg tablet,extended 500 ea PO DAILY 12/29/21 Unknown History release 24 hr glimepiride 2 mg tablet 2 mg PO DAILY 06/09/24 Unknown History sulfamethoxazole 800 1 tab PO Q12.TCU 06/09/24 Unknown History mg-trimethoprim 160 mg tablet Allergy/AdvReac Type Severity Reaction Status Date / Time No Known Allergies Allergy Verified 06/09/24 19:20 Family History Mother Hypertension Breast cancer Father Colon cancer Surgical History History of colonoscopy (~2007) Status post ORIF of fracture of ankle History of foot surgery History of arthroscopic knee surgery History of nephrolithotomy with removal of calculi History of esophagogastroduodenoscopy (EGD) History of cholecystectomy History of colonoscopy (~2018) Social History Smoking Status: Never smoker Physical Exam Const alert, oriented x3 and no apparent distress General Appearance: cooperative HEENT normocephalic and head/scalp atraumatic Eyes PERRL and EOMs intact bilaterally Neck supple and No nodes Resp normal air movement and clear to auscultation bilaterally Cardio regular rate and regular rhythm GI soft to palpation, non-tender and non-distended Extremity General Extremity: edema Skin Skin Narrative: R dorsal foot improved redness, R 2nd toe swelling, no open wound. Lab / Micro Data Attestation: I reviewed the patient's lab results. 06/10/24 07:23 06/10/24 07:23 Labs: Laboratory Results - last 24 hr 06/09/24 19:10: WBC 4.9, RBC 5.49, Hgb 16.5, Hct 49.1, MCV 89.4, MCH 30.1, MCHC 33.6, RDW Std Deviation 42.5, RDW Coeff of Chad 13.0, Plt Count 196, MPV 8.9, Immature Gran % (Auto) 0.200, Neut % (Auto) 67.9, Lymph % (Auto) 20.4, Eddy % (Auto) 9.3, Eos % (Auto) 1.6, Baso % (Auto) 0.6, Absolute Neuts (auto) 3.3, Absolute Lymphs (auto) 0.99, Nucleated RBC % 0, Sodium 133, Potassium 4.6, Anion Gap 13, BUN 21 H, Creatinine 1.2, Estim Creat Clear Calc 54.06, Est GFR (MDRD) Non-Af 65, BUN/Creatinine Ratio 18.2, Glucose 119 H, Calcium 9.4, Magnesium 2.2 06/09/24 20:15: Lactic Acid < 1.0 06/09/24 23:41: POC Glucose 91 06/10/24 05:26: POC Glucose 104 06/10/24 07:23: WBC 5.2, RBC 5.34, Hgb 15.8, Hct 47.0, MCV 88.0, MCH 29.6, MCHC 33.6, RDW Std Deviation 42.3, RDW Coeff of Chad 13.1, Plt Count 186, MPV 8.8, Immature Gran % (Auto) 0.200, Neut % (Auto) 74.5 H, Lymph % (Auto) 12.4 L, Eddy % (Auto) 9.2, Eos % (Auto) 3.1, Baso % (Auto) 0.6, Absolute Neuts (auto) 3.9, Absolute Lymphs (auto) 0.65 L, Nucleated RBC % 0, Sodium 133, Potassium 4.3, Chloride Direct 102, Carbon Dioxide 17.8 L, Anion Gap 14, BUN 17, Creatinine 0.9, Estim Creat Clear Calc 72.51, Est GFR (MDRD) Non-Af 83, BUN/Creatinine Ratio 18.2, Glucose 115 H, Calcium 8.6, Phosphorus 3.0, Total Bilirubin 0.50, AST 28, ALT 17, Alkaline Phosphatase 76, Total Protein 6.3, Albumin 3.8, Globulin 2.5, Albumin/Globulin Ratio 1.5, Triglycerides 130, Cholesterol 162, VLDL Cholesterol 26, HDL Cholesterol 29 L, Cholesterol/HDL Ratio 5.64, TSH 3.600 06/10/24 12:02: POC Glucose 92 Imaging Radiology Impression Foot X-Ray 06/09/24 20:06 IMPRESSION: No evidence of acute fracture or significant erosions. Possible 2nd metatarsophalangeal joint dislocation versus radiograph angle. Details above. Reading Location: [id number]
[2024-06-10 15:00] VITALS: BP 136/65; PULSE 66; RESP 16; TEMP 36.8; O2SAT 96
--- NOTE | 2024-06-10 15:49 | ART_ITS ---
Reason For Study Reason For Study: RLE Wound Procedure A bilateral lower extremity continuous wave Doppler with analog waveform analysis,segmental pressures,and ankle brachial indexes without exercise. Left Segmental Pressures Left posterior tibial artery = 208mmHg. Left dorsalis pedis artery = 197mmHg. Left digit = 127 mmHg. The left posterior tibial artery waveforms are triphasic. The left dorsalis pedis waveforms are triphasic. Right Segmental Pressures Right brachial= 173mmHg. Right posterior tibial artery = 210mmHg. Right dorsalis pedis artery = 158mmHg. Right digit = 107 mmHg. The right posterior tibial artery waveforms are triphasic. The right dorsalis pedis waveforms are biphasic. Indices The right ankle brachial index by the posterior tibial artery is 1.21. The right ankle brachial index by the dorsalis pedis is 0.91. The right digital-brachial index is 0.62. The left ankle brachial index by the posterior tibial artery is 1.20. The left ankle brachial index by the dorsalis pedis is 1.14. The left digital-brachial index is 0.73. VL/Lower Ext Art Exam w/o Exercis Interpretation Summary Right RAFI 1.21, normal. Doppler/PVR waveforms of the right leg normal at rest. 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 Left RAFI 1.2, normal. Doppler/PVR waveforms of the left leg normal at rest. 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 Ordering Physician: Nasim Gudino Referring Physician: Leti Villatoro Performed By: Gavin Danielson RVT
--- NOTE | 2024-06-10 16:57 | PCM.PN.HOSP ---
Reason for Visit Reason for Visit: Diagnoses Type 2 diabetes mellitus with foot ulcer (06/09/24) Overweight (06/09/24) Non-pressure chronic ulcer of other part of unspecified foot with unspecified severity (06/09/24) Non-pressure chronic ulcer of other part of right foot with unspecified severity (06/09/24) Pyogenic arthritis, unspecified (06/09/24) Other acute osteomyelitis, right ankle and foot (06/09/24) Osteomyelitis, unspecified (06/09/24) Subjective Subjective Patient was seen and examined today, I talked with podiatry and infectious diseases concerning his care today. Patient has an infection in his right second toe, it appears from documentation that podiatry is planning an amputation tomorrow involving the right second toe. Objective Data Objective Data Vital Signs: Vital Signs Temp Pulse Resp BP Pulse Ox O2 Del Method 98.3 F 66 16 136/65 H 96 Room Air 06/10/24 15:00 06/10/24 15:00 06/10/24 15:00 06/10/24 15:00 06/10/24 15:00 06/10/24 15:00 Oxygen Delivery Method Room Air Weight: 87.3 kg Body Mass Index (BMI) 30.2 Intake & Output: Intake and Output for Last 24 Hours 06/08/24 06/09/24 06/10/24 23:59 23:59 23:59 Intake Total 1100 / 1100 2106.5 / 2106.5 Balance 1100 / 1100 2106.5 / 2106.5 Lab / Micro Data 06/10/24 07:23 06/10/24 07:23 Labs: Laboratory Results - last 24 hr 06/09/24 19:10: WBC 4.9, RBC 5.49, Hgb 16.5, Hct 49.1, MCV 89.4, MCH 30.1, MCHC 33.6, RDW Std Deviation 42.5, RDW Coeff of Chad 13.0, Plt Count 196, MPV 8.9, Immature Gran % (Auto) 0.200, Neut % (Auto) 67.9, Lymph % (Auto) 20.4, [place] % (Auto) 9.3, Eos % (Auto) 1.6, Baso % (Auto) 0.6, Absolute Neuts (auto) 3.3, Absolute Lymphs (auto) 0.99, Nucleated RBC % 0, Sodium 133, Potassium 4.6, Anion Gap 13, BUN 21 H, Creatinine 1.2, Estim Creat Clear Calc 54.06, Est GFR (MDRD) Non-Af 65, BUN/Creatinine Ratio 18.2, Glucose 119 H, Calcium 9.4, Magnesium 2.2 06/09/24 20:15: Lactic Acid < 1.0 06/09/24 23:41: POC Glucose 91 06/10/24 05:26: POC Glucose 104 06/10/24 07:23: WBC 5.2, RBC 5.34, Hgb 15.8, Hct 47.0, MCV 88.0, MCH 29.6, MCHC 33.6, RDW Std Deviation 42.3, RDW Coeff of Chad 13.1, Plt Count 186, MPV 8.8, Immature Gran % (Auto) 0.200, Neut % (Auto) 74.5 H, Lymph % (Auto) 12.4 L, [place] % (Auto) 9.2, Eos % (Auto) 3.1, Baso % (Auto) 0.6, Absolute Neuts (auto) 3.9, Absolute Lymphs (auto) 0.65 L, Nucleated RBC % 0, Sodium 133, Potassium 4.3, Chloride Direct 102, Carbon Dioxide 17.8 L, Anion Gap 14, BUN 17, Creatinine 0.9, Estim Creat Clear Calc 72.51, Est GFR (MDRD) Non-Af 83, BUN/Creatinine Ratio 18.2, Glucose 115 H, Calcium 8.6, Phosphorus 3.0, Total Bilirubin 0.50, AST 28, ALT 17, Alkaline Phosphatase 76, Total Protein 6.3, Albumin 3.8, Globulin 2.5, Albumin/Globulin Ratio 1.5, Triglycerides 130, Cholesterol 162, VLDL Cholesterol 26, HDL Cholesterol 29 L, Cholesterol/HDL Ratio 5.64, TSH 3.600 06/10/24 12:02: POC Glucose 92 Radiography Diagnostic Testing: Radiology Impression Foot X-Ray 06/09/24 20:06 IMPRESSION: No evidence of acute fracture or significant erosions. Possible 2nd metatarsophalangeal joint dislocation versus radiograph angle. Details above. Reading Location: [place] [id number] Physical Exam Const alert, oriented x3, no apparent distress, average body habitus and healthy appearing General Appearance: cooperative, well kempt and well developed Orientation / Consciousness: awake, oriented to person, oriented to place and oriented to time HEENT normocephalic, head/scalp atraumatic and moist oral mucous membranes Eyes PERRL, EOMs intact bilaterally and conjunctivae normal Neck supple, no JVD, thyroid normal and no carotid bruits General: trachea midline Resp normal respiratory effort, no retractions, no use of accessory muscles and clear to auscultation bilaterally Auscultation: Negative for rales, rhonchi or wheezes Cardio regular rate, regular rhythm, S1 normal heart sound, S2 normal heart sound, no murmurs, no rub and no gallops GI normal to inspection, nondistended, normoactive bowel sounds, soft to palpation, non-tender and non-distended Extremity Extremity Narrative: Patient's right foot was not examined during the time of my visit today Skin no rashes or lesions noted General Skin Exam: no breakdown Neuro oriented x3, CN's II-XII intact bilaterally, no focal motor deficits and no sensory deficits noted Sensorium / Orientation: awake and alert Speech: speech normal Psych affect normal Assessment & Plan Assessment/Plan (1) Acute osteomyelitis of right foot: PLAN: Plan 1. Osteomyelitis of the right second toe-infectious diseases is participating in his care and podiatry is also seeing the patient, the plan is for the patient to undergo surgery on the right second toe tomorrow #2 type 2 diabetes-patient's blood sugars will be monitored, sliding scale insulin will be administered if needed #3 essential hypertension-patient will remain on his home medications Total clinical time spent by myself addressing the patient's medical issues, reviewing all of his data, and collaborating with patient's care team: 35 minutes Charges/Coding Visit Charges Inpatient E&M: 10437 Subs Hosp L2
[2024-06-10 17:03] LABS: Bedside Glucose 235 mg/dL (74-106)
[2024-06-10 18:38] LABS: Bedside Glucose 152 mg/dL (74-106)
[2024-06-10 19:33] VITALS: BP 139/66; PULSE 64; RESP 16; TEMP 36.7; O2SAT 97
--- NOTE | 2024-06-10 21:56 | CPS ---
Patient does not wear a Home PAP and refuses to wear one during his stay here
[2024-06-10 22:29] LABS: Bedside Glucose 136 mg/dL (74-106)
[2024-06-11] VITALS (11 sets, daily range): BP systolic 123–166; BP diastolic 44–78; PULSE 59–68; RESP 15–22; TEMP 36.1–37.2; O2SAT 93–100; BMI 29.8; BMI 29.0
--- NOTE | 2024-06-11 06:00 | EKG12_ITS ---
Test Reason : PRE OP Blood Pressure : */* mmHG Vent. Rate : 58 BPM Atrial Rate : 58 BPM P-R Int : 172 ms QRS Dur : 94 ms QT Int : 414 ms P-R-T Axes : 0 57 46 degrees QTcB Int : 406 ms Sinus bradycardia Otherwise normal ECG When compared with ECG of 03-Feb-2010 07:06, No significant change was found Confirmed by Parker Bryant ([id number]), senior editor DRISS MEDLEY ([id number]) on 06/12/2024 5:59:08 AM Referred By: TREVA Confirmed By: Parker Bryant
[2024-06-11 06:35] LABS: Bedside Glucose 108 mg/dL (74-106)
--- NOTE | 2024-06-11 08:00 | AMP_PTH ---
PATIENT: ENRIQUE MCGILL LOC: MS3 U#:[id number] AGE/SX: 78/M ROOM: [facility] RE06/09/[address]: Dr. Jose L Jones MD : 1945 BED: 1 DIS: 06/15/2024 SPEC #: [id number] RECD: 06/12/24 08:50 STATUS: EDUARDO REAndrea #: [id number] [place]: 06/11/24 08:[address]: Nasim Gudino DEPT: SURGICAL PATHOLOGY RECD BY: Risa Courtney ENTERED: 06/12/24 10:12 SP TYPE: Amputation OTHR DR: Dr. Dallin Bowen, DO Dr. Parker Waggoner, DPM Dr. Nav Huff, DO MD Leti Small, ACCOUNTING OFFICER-C Tissues: A - Toe, NOS B - Toe, NOS Procedures: Decalcification bone/plaque Surgery Specimen Level IV Comments: @ Ordering doctor for DEC edited from to @ by SALAZAR at 06/12/24 1200 @ Ordering doctor for SUIV edited from to @ by SALAZAR at 06/12/24 1200 @ Submitting doctor edited from to @ by SALAZAR at 06/12/24 1200 HEADER OPERATION: Amputation, 2nd toe and 2nd metatarsal PRE-OP DIAGNOSIS: Right 2nd toe osteomyelitis and septic arthritis TISSUE SUBMITTED: A- Amputated second toe right and second metatarsal, B- Clearance fragment 2nd metatarsal MICROSCOPIC DIAGNOSIS A. Right 2nd toe and metatarsal, amputation: * Intact skin * Acutely inflamed soft tissue with granulation tissue * Septic arthritis * Osteomyelitis B. 2nd metatarsal, clearance fragment, excision: * Scant bone with reactive/degenerative changes * Scant fibrous tissue without significant inflammation MICROSCOPIC DESCRIPTION Slides are reviewed. GROSS DESCRIPTION A. Received in fixative is one container labeled with the patient's name and designated Amputated 2nd toe right and second metatarsal. The specimen consists of a portion of toe measuring 5.5 x 2 x 1.7cm. Nail appears atrophic. No obvious area of ulceration is noted. Also present in the container are multiple detached pieces of soft tissue measuring in aggregate 4 x 3.5 x 1cm. Also present in the container is a detached piece of bone consistent with portion of metatarsal measuring 3.9 x 1.5 x 1.2cm. Can Patcher sections are submitted in four cassettes as follows: 1&2- detached pieces of soft tissue and skin from toe, 3- longitudinal section of the bone from toe, 4- longitudinal section from metatarsal bone after decalcification. B. Received in fixative is one container labeled with the patient's name and designated Clearance fragment 2nd metatarsal. The specimen consists of multiple minute fragments of bone measuring in aggregate 0.6 x 0.2 x 0.1cm. The entire specimen is submitted in one cassette after decalcification. SJ 06/12/2024 TC: CPT:38187x5,[id number]
[2024-06-11 08:34] LABS: Phosphorus 2.8 mg/dL (2.7-4.5)
--- NOTE | 2024-06-11 10:02 | WOUNDNOTE ---
Pt scheduled for surgery later today with Dr Gudino.
[2024-06-11] MEDS: 0.9% Saline Lock 10 ML Syringe IV (10:04)
[2024-06-11] MEDS: 0.9% Normal Saline (100mL Bag) 100 ML 15 ML IV (10:04)
[2024-06-11] MEDS: Ceftriaxone 2 GM in 0.9% Normal Saline (50mL MB+) 50 ML IV (10:05)
[2024-06-11] MEDS: Vancomycin Trough/Random Due 1 LAB MC ×2 (11:08→11:10)
[2024-06-11 11:10] LABS: Vancomycin, Trough Level 12.7 ug/mL (5.0-15.0)
--- NOTE | 2024-06-11 11:21 | PCM.RX.CS ---
Consult Antibiotic Management Pharmacy has been consulted to manage selected antibiotic: Vancomycin Type of Intervention Type of Consult: Follow-up Suspected Infection Suspected Infection: Osteomyelitis Prior Doses of Antibiotics Prior Doses of Antibiotics Received/Current Regimen: Vancomycin 750 mg IV Q12H last dose given 06/10/24 @ 3212 Labs Labs: Sodium 133 mmol/L (133-145) 06/10/24 07:23 Potassium 4.3 mmol/L (3.3-5.1) 06/10/24 07:23 Carbon Dioxide 17.8 mmol/L (22.0-29.0) L 06/10/24 07:23 Anion Gap 14 (5-15) 06/10/24 07:23 BUN 17 mg/dL (4-19) 06/10/24 07:23 Creatinine 0.9 mg/dL (0.8-1.3) 06/10/24 07:23 Est GFR (MDRD) Non-Af 83 (>60) 06/10/24 07:23 BUN/Creatinine Ratio 18.2 RATIO (10-20) 06/10/24 07:23 Glucose 115 mg/dL (70-99) H 06/10/24 07:23 Vancomycin Trough 12.7 ug/mL (5.0-15.0) 06/11/24 10:13 Dosing Weight Weight used for dosin.8 kg Estimated Creatinine Clearance Estimated Creatinine Clearance: ~ 73 Goal Trough Goal Trough: 15-20 mcg/mL Pharmacy Plan for Drug Dosing Pharmacy Plan for Drug Dosing: Vancomycin trough = 12.7, increase to 1000 mg Q12H Pharmacy Service will continue to monitor and adjust dosing as required. Follow-Up Labs Follow-Up Labs: Trough: Vancomycin Date/Time Labs Ordered Labs to be done on [date and time ordered]: 06/12/24 @ 2300
[2024-06-11 11:38] LABS: Bedside Glucose 104 mg/dL (74-106)
[2024-06-11] MEDS: Vancomycin IV 1,000 MG/200 ML BAG 200 MG IV ×2 (12:38→23:20)
--- NOTE | 2024-06-11 12:48 | PRE.ANES_ITS ---
ASA Classification* ASA Classification ASA Classification: 3 Assessment & Plan Anesthesia* Anesthesia Assessment Anesthesia Assessment: Discussed sedation and/or anesthesia options, risks, benefits, and alternatives with patient/parents/legal guardian/POA. Questions invited. The patient/parents/legal guardian/POA seems to understand and agrees to proceed with anesthesia plan. Reviewed the physical assessment, medical history, allergy history and patient home medications list prior to surgery/procedure/anesthetic and documented any changes. Performed airway and anesthesia risk assessments. Anesthesia Type Anesthesia Type: MAC History Source History Obtained from:: Patient and Chart Anesthesia Focused Assessment* Temperature: 97.7 F Pulse Rate: 67 Blood Pressure: 152/44 Respiratory Rate: 16 Pulse Ox: 96 Airway Assessment Mouth opens: >3 cm Mallampati Score: II Teeth Condition: Partial (upper) Neck Range of motion (ROM): Full ROM Focused Labs Anesthesia Preop lab: CBC WBC 5.2 K/mm3 (4.4-11.0) 06/10/24 07:23 06/10/24 RBC 5.34 M/mm3 (4.6-6.2) 06/10/24 07:23 06/10/24 Hgb 15.8 g/dL (13.0-16.5) 06/10/24 07:23 06/10/24 Hct 47.0 % (40-54) 06/10/24 07:23 06/10/24 Plt Count 186 K/mm3 (150-450) 06/10/24 07:23 06/10/24 CHEMISTRY Potassium 4.3 mmol/L (3.3-5.1) 06/10/24 07:23 06/10/24 Sodium 133 mmol/L (133-145) 06/10/24 07:23 06/10/24 Magnesium 2.2 mg/dL (1.5-2.2) 06/09/24 19:10 06/09/24 Phosphorus 2.8 mg/dL (2.7-4.5) 06/11/24 07:26 06/11/24 BUN 17 mg/dL (4-19) 06/10/24 07:23 06/10/24 Creatinine 0.9 mg/dL (0.8-1.3) 06/10/24 07:23 06/10/24 Glucose 115 mg/dL (70-99) H 06/10/24 07:23 06/10/24 POC Glucose 104 mg/dL (74-106) 06/11/24 11:21 06/11/24 TSH 3.600 uIU/mL (0.300-4.200) 06/10/24 07:23 05/17 10/07 COAG Pre-Assessment Diagnosis/Proposed Procedure Planned Operative Procedure(s): amputation right 2nd toe Anesthesia History Anesthesia History - professor of 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 When Was Last Pacemaker Check QUESTION #4 FULL TEXT: You/Your Family Experience fever (hyperthermia) with Anesthesia Last Oral Intake Last Oral intake: Last Oral Intake NPO since 06/10 Meds taken in AM with sips of water? Meds patient instructed to take am of surgery PONV PONV - professor of history: PONV - professor of history Female HX of Motion Sickness HX of N/V After Surgery Non-Smoker Duration of Surgery greater than 60 minutes Number of Risk Factors PONV Score Height & Weight Height & Weight: Anesthesia: Height & Weight Height 5 ft 7 in 06/10/24 11:18 Weight: 83.8 kg 06/11/24 12:23 Body Mass Index (BMI) 29.0 06/11/24 06:21 Respiratory Assessment Respiratory Assessment - professor of history: Respiratory Tract Infection Hx - professor of history Hx Respiratory Tract Infection No 06/10/24 20:20 STOP Sleep Apnea STOP Sleep Apnea - professor of history: STOP Sleep Apnea - professor of history Hx Hypertension Yes 06/09/24 23:16 Hx Sleep Apnea Yes 06/09/24 23:16 CPAP No 06/09/24 23:16 BIPAP No 06/09/24 23:16 Do you snore loudly (louder than talking or can be heard Do you often feel tired/ fatigued/ sleepy during daytime? Has anyone observed you stop breathing during sleep? STOP Results Positive 06/09/24 23:16 QUESTION #5 FULL TEXT : Do you snore loudly (louder than talking or can be heard through closed doors)? Tobacco Use History Tobacco Use History - professor of history: Tobacco Use History - professor of history Tobacco Use Smoking Status Never smoker 06/09/24 23:16 Hx Tobacco Use No 06/09/24 23:16 Years Smoking Packs Smoked per Day Smoking Cessation Date was within the last 15 years Hx Smoking Cessation Date Hx Smoking Cessation Counseling Hematologic Medial History Hematologic Hx - professor of history: Hematologic Medical Hx - psychiatric tech Hx of Blood Transfusion No 06/09/24 23:16 Hx of Transfusion in last 3 No 06/09/24 23:16 Months Date of Last Transfusion (if within last 3 months) Ever experience any problems No 06/09/24 23:16 with transfusion(s)? Specify any problems Hx of Preganancy in last 3 N/A 06/09/24 23:16 Months Nurse Filling Out Transfusion DREDICK 06/09/24 23:16 & Questions: Date: 06/09/24 06/09/24 23:16 Time: 23:17 06/09/24 23:16 Patient unable to answer at this time (ie. confused, unrespo /Reproduction History /Reproductive History - professor of history: /Reproductive Hx- professor of history Hx Now No 06/10/24 20:20 Gestational Age (in weeks): EDC: Hx Hx Para Hx Section SAB No 06/10/24 20:20 Active Medications Active Medications: Current Medications Generic Name Dose Route Start Last Admin Trade Name Freq PRN Reason Stop Dose Admin Acetaminophen 650 mg 06/09/24 23:07 Acetaminophen 325 Mg Tablet PO Q6H PRN PRN Pain 1-5/10 or Fever Ascorbic Acid 1,000 mg 06/10/24 08:00 06/11/24 09:19 Ascorbic Acid 500 Mg Tablet PO Not Given BIDCM MIGUEL Cholecalciferol 125 mcg 06/10/24 10:00 06/11/24 09:21 Cholecalciferol (Vit D3) 125 Mcg Capsule (5,000 Units) PO Not Given DAILY MIGUEL Enoxaparin Sodium 40 mg 06/10/24 10:00 06/11/24 09:21 Enoxaparin 40 Mg/0.4 Ml Syringe SC Not Given DAILY MIGUEL Folic Acid 1 mg 06/10/24 08:00 06/11/24 09:19 Folic Acid 1 Mg Tablet PO Not Given BREAKFAST MIGUEL Glucagon 1 mg 06/09/24 23:07 Glucagon 1 Mg/Ml Syringe IM X1 PRN HYPOGLYCEMIA Protocol Hydrochlorothiazide 12.5 mg 06/10/24 10:00 06/11/24 09:23 Hydrochlorothiazide 12.5mg PO Not Given DAILY ON LICENSE OF [facility] Vancomycin IV-PHARMACY TO DOSE 500 mls @ 250 mls/hr 06/09/24 23:07 1 each/ Sodium Chloride IV X1 PRN Rx to Dose Protocol Dextrose 250 mls @ 0 mls/hr 06/09/24 23:07 Dextrose 10%-Water IV .Q0M PRN HYPOGLYCEMIA Protocol As Directed Sodium Chloride 100 mls @ 15 mls/hr 06/09/24 23:08 06/11/24 10:04 IV 15 mls/hr .Q6H40M PRN Administration Saline Flush Sodium Chloride 100 mls @ 15 mls/hr 06/09/24 23:08 IV .Q6H40M PRN Additional IVPB Infusion Ceftriaxone Sodium 2 gm/ 50 mls @ 100 mls/hr 06/10/24 13:35 06/11/24 10:35 Sodium Chloride IV Infused Q24 MIGUEL Infusion Vancomycin HCl 1,000 mg in 200 mls @ 200 mls/hr 06/11/24 11:30 06/11/24 12:38 Vancomycin IV 200 mls/hr Q12H MIGUEL Administration Sodium Chloride 1,000 mls @ 15 mls/hr 06/11/24 12:45 IV 06/17/24 02:04 .Q48H ON LICENSE OF [facility] Protocol Insulin Human Lispro 0 unit 06/10/24 00:00 06/11/24 12:26 Insulin Lispro 100 Unit/Ml Insuln.Pen SC Not Given Q6 ON LICENSE OF [facility] Protocol Lisinopril 20 mg 06/10/24 10:00 06/11/24 09:23 Lisinopril 20 Mg Tablet PO Not Given DAILY MIGUEL Magnesium Hydroxide 30 ml 06/09/24 23:07 Magnesium Hydroxide 30 Ml Udc PO DAILY PRN PRN Constipation Melatonin 3 mg 06/09/24 23:07 Melatonin 3 Mg Tablet PO QHS PRN PRN INSOMNIA Metronidazole 500 mg 06/10/24 14:00 06/11/24 06:12 Metronidazole 500 Mg Tablet PO Not Given TID ON LICENSE OF [facility] Morphine Sulfate 2 mg 06/09/24 23:07 Morphine 2 Mg/Ml Syringe IV Q4H PRN PRN Pain Score 6-10 Nutritional Formula (Lactose Free) 120 ml 06/10/24 08:00 06/11/24 11:07 Glucerna Shake 120 Ml Liquid PO Not Given TIDCM ON LICENSE OF [facility] Ondansetron HCl 4 mg 06/09/24 23:07 Ondansetron 4 Mg/2 Ml Vial IV Q8H PRN PRN NAUSEA/VOMITING Sodium Chloride 10 - 40 ml 06/09/24 23:08 06/11/24 10:04 0.9% Saline Lock 10 Ml Syringe IV 10 ml UD PRN Administration SALINE FLUSH Vancomycin Protocol 1 lab 06/12/24 21:00 Vancomycin Trough/Random Due 06/13/24 01:00 DAILY ON LICENSE OF [facility] Zinc Sulfate 50 mg 06/10/24 10:00 06/11/24 09:21 Zinc Sulfate 50 Mg Zinc (220 Mg) Oral Capsule PO Not Given DAILY [facility] Medical History History of renal calculi History of rectal cancer Neuropathy Hiatal hernia Sleep apnea History of diverticulosis History of colon polyps Hyperlipidemia HTN (hypertension) Diabetes mellitus Home Medications ?Medication ?Instructions ?Recorded ?Last Taken ?Type dapagliflozin propanediol 10 mg 10 mg PO DAILY 2 Unknown History tablet (Farxiga) lisinopril 20 1 tab PO DAILY 12/29/21 Unkn own History mg-hydrochlorothiazide 12.5 mg tablet metformin 500 mg tablet,extended 500 ea PO DAILY 12/29 Unknown History release 24 hr glimepiride 2 mg tablet 2 mg PO DAILY 06/09/24 Unkno wn History sulfamethoxazole 800 1 tab PO Q12.TCU 06/09/24 Un known History mg-trimethoprim 160 mg tablet Allergy/AdvReac Type Severity Reaction Status Date / Time No Known Allergies Allergy Verified 06/09/24 19:20 Family History Mother Hypertension Breast cancer Father Colon cancer Surgical History History of colonoscopy (~2007) Status post ORIF of fracture of ankle History of foot surgery History of arthroscopic knee surgery History of nephrolithotomy with removal of calculi History of esophagogastroduodenoscopy (EGD) History of cholecystectomy History of colonoscopy (~2019) Social History Smoking Status: Never smoker Review of Systems (Anesthesia) ROS Narrative System reviewed and no additional complaints, except as documented.
[2024-06-11] MEDS: Bupivacaine Mpf 0.5% 30 ML VIAL (13:16)
--- NOTE | 2024-06-11 14:01 | RAD_ITS ---
PROCEDURE: Right foot radiographs REASON FOR EXAM: Postop TECHNIQUE: Two views of the right foot COMPARISON: 06/09/2024 FINDINGS: See impression RAD/Foot min 3 Views IMPRESSION: Interval amputation of the 2nd digit at the level of the mid metatarsal. Osteo santos site is smooth and without suspicious erosive changes. 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 N egative for acute fracture or dislocation. No radiopaque foreign body. Reading Location: [facility]
--- NOTE | 2024-06-11 14:01 | PCM.OPRPT ---
Operative Report (Standard) Operative Information Date of Procedure: 06/11/24 Pre-Operative Diagnosis: Osteomyelitis right 2nd toe and 2nd metatarsal Deformity right 2nd toe and 2nd metatarsal Post-Operative Diagnosis: Same Surgery/Procedure Performed: Amputation of right 2nd toe and 2nd metatarsal stone and concrete washer: No Type of Anesthesia: Local MAC RN Documented Start/Stop Times: Operation Date: 06/11/24 08:00 Case Time Into Pre-Op 06/11/24 12:20 Anesthesia Start 06/11/24 13:06 Into Room 06/11/24 13:06 Procedure Start 06/11/24 13:25 Procedure End 06/11/24 13:57 Anesthesia End 06/11/24 14:03 Out of Room 06/11/24 14:03 Procedure Start Time: Procedure Stop Time: Select all DRAINS/GRAFTS/IMPLANTS that apply: None Estimated Blood Loss: 1mL Specimen collected: Yes Description of specimen(s) removed: Amputated 2nd toe and 2nd metatarsal - right - sent to pathology Bone culture from right 2nd toe and 2nd metatarsal sent to microbiology Clearance fragment from right 2nd metatarsal sent to pathology and microbiology Description of surgery: 78 year old gentleman with history of diabetes, with infection right foot, noted to have findings consistent with osteomyelitis to 2nd ray of his right foot. Also it was noted 2nd toe is dorsally displaced and floating not purchasing ground, he has a pressure lesion with history of ulceration sub 2nd metatarsal head on his right foot. He was on oral antibiotics but admitted for IV antibiotics and further management. MRI showed findings consistent with osteomyelitis to the right foot 2nd ray. Clinically he also was noted to have edema and erythema to his right foot. Discussed the options with patient antibiotic therapy, wound care, offloading, no treatment, and also discussed surgical intervention. Given the findings and after further discussion with patient he elected to proceed with amputation surgery. 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 Reviewed procedure, possible benefits vs risks, goals, and expectations. The alternative options were discussed with him as noted above. He was advised the risks include but not limited to transfer lesions, bleeding, blood clot, deformity, nonhealing, need for further surgery, infection, phantom pain, loss of limb, loss of life. The consent form was reviewed with him and he freely signed it. All of his questions were answered. Operative Procedure: Patient was brought back to the operating room and was placed on the operating room table. The patient was secured to the operating room table with a safety belt around his waist. A well padded pneumatic tourniquet was applied around his right ankle. A timeout was performed and the patient was properly identified and surgical plan was confirmed. The patient received MAC anesthesia per the anesthesia team, the patient skin of his right foot was cleansed with 70% Isopropyl alcohol and a total of 10mL 0.5% Bupivacaine was given as a local nerve block to right foot 2nd ray. The patient's right foot was scrubbed, prepped, and draped in the usual aseptic fashion. Patient's right foot was elevated for exsanguination and the right ankle pneumatic tourniquet was inflated to 250mmHg. An incision was made to the skin and down to bone at the level of the dorsal 2nd metatarsal and around the base of the 2nd toe using a 15 blade. A flap was created in this process. The toe was disarticulated the level of the 2nd metatarsal phalangeal joint. An osteotomy was completed at the proximal 2nd metatarsal using a powered sagittal saw. The 2nd toe and 2nd metatarsal distal to the osteotomy site was excised using a 15 blade. It was noted the base of the proximal phalanx and head of the 2nd metatarsal was eroded, yellow and simon consistent with osteomyelitis. This was sent to pathology as a specimen and a piece of the base of the 2nd toe proximal phalanx and head of the 2nd metatarsal was obtained using a bone cutting rongeur and sent to microbiology as a specimen for further evaluation. Again this bone was noted to be soft, crumbly and nonviable consistent with osteomyelitis. The bone of the proximal 2nd metatarsal at proximal amputation site was visualized and noted to be white, hard and viable and did appear to be free of infection. A specimen of bone was obtained from the healthy appearing 2nd metatarsal bone using a clean / different bone cutting rongeur, and was sent to pathology and microbiology as a clearance fragment. There was noted to be chronic abscess to the level of the amputation which which was debrided and excised using a 15 blade. The remaining tissues were noted to be healthy and viable at the amputation level site. The site was flushed out with copious amounts of normal saline solution. The skin was reapproximated and closed using 3-0 Prolene. A dressing was applied which consisted of betadine adaptic, 4x4 gauze, kerlix and gabriele dressing. The pneumatic tourniquet was deflated and there was immediate return of warmth and perfusion to foot and to remaining toes. Total tourniquet time was 31 minutes. The patient tolerated the procedure and anesthesia well with no complications. The patient was transported from the operating room to the recovery room with vital signs stable and in good condition. Post operative orders were placed, and patient will be followed as an inpatient. Surgical Findings: As noted above Complications Complications: No
--- NOTE | 2024-06-11 14:09 | PCM.POST.ANE ---
Anesthesia: Postop Eval I Current Vital Signs Temperature: 97 F Pulse Rate: 64 Blood Pressure: 133/64 Respiratory Rate: 22 Pulse Ox: 98 Oxygen Delivery Method: Room Air Assessment Airway patent: Yes Spontaneous unlabored respirations: Yes Mental status: Awake and Calm nausea: No Vomiting: No Anesthesia Complication: No Fluid Hydration Crystalloid volume administer (ml): 400 Total IV fluid infused: 400 Progress Note Anesthesia document: Postop Eval 1 completed: Yes
[2024-06-11] MEDS: 0.9% Normal Saline (1000mL) 1,000 ML 15 ML IV (14:58)
[2024-06-11] MEDS: metroNIDAZOLE 500 MG Tablet PO ×2 (15:08→22:48)
[2024-06-11] MEDS: Lactobacillis Acidophilus 1 CAP PO ×3 (15:08→22:48)
[2024-06-11] MEDS: Ascorbic Acid 500 MG Tablet 1000 MG PO (15:08)
[2024-06-11] MEDS: Glucerna Shake 120 ML LIQUID PO (15:11)
[2024-06-11 16:27] LABS: Bedside Glucose 159 mg/dL (74-106)
--- NOTE | 2024-06-11 18:46 | PN.HOSP_ITS ---
Reason for Visit Reason for Visit: Diagnoses Type 2 diabetes mellitus with foot ulcer (06/09/24) Overweight (06/09/24) Non-pressure chronic ulcer of other part of unspecified foot with unspecified severity (06/09/24) Non-pressure chronic ulcer of other part of right foot with unspecified severity (06/09/24) Pyogenic arthritis, unspecified (06/09/24) Other acute osteomyelitis, right ankle and foot (06/09/24) Osteomyelitis, unspecified (06/09/24) Subjective Subjective Patient was seen and examined this morning, later on the day he underwent an amputation of the right second toe and second metatarsal without complication. I talked briefly with podiatry today. Objective Data Objective Data Vital Signs: Vital Signs Temp Pulse Resp BP Pulse Ox O2 Del Method 97.9 F 59 L 18 166/78 H 100 Room Air 06/11/24 15:01 06/11/24 15:01 06/11/24 15:01 06/11/24 15:01 06/11/24 15:01 06/11/24 15:01 Oxygen Delivery Method Room Air Weight: 83.8 kg Body Mass Index (BMI) 29.0 Intake & Output: Intake and Output for Last 24 Hours 06/09/24 06/10/24 06/11/24 23:59 23:59 23:59 Intake Total 1100 / 1100 2571.5 / 2571.5 670 / 670 Balance 1100 / 1100 2571.5 / 2571.5 670 / 670 Lab / Micro Data 06/10/24 07:23 06/10/24 07:23 Labs: Laboratory Results - last 24 hr 06/10/24 21:05: POC Glucose 136 H 06/11/24 06:15: POC Glucose 108 H 06/11/24 07:26: Phosphorus 2.8 06/11/24 10:13: Vancomycin Trough 12.7 06/11/24 11:21: POC Glucose 104 06/11/24 16:09: POC Glucose 159 H Radiography Diagnostic Testing: Radiology Impression Extremity Arterial Study 06/10/24 15:49 Interpretation Summary Right RAFI 1.21, normal. Doppler/PVR waveforms of the right leg normal at rest. 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 Left RAFI 1.2, normal. Doppler/PVR waveforms of the left leg normal at rest. 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 Ordering Physician: Nasim Gudino Referring Physician: Leti Villatoro Performed By: Gavin Danielson RVT Foot X-Ray 06/11/24 14:01 IMPRESSION: Interval amputation of the 2nd digit at the level of the mid metatarsal. Osteotomy site is smooth and without suspicious erosive changes. 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 Negative for acute fracture or dislocation. No radiopaque foreign body. Reading Location: [facility] Physical Exam Narrative alert, oriented x3, no apparent distress, average body habitus and healthy appearing General Appearance: cooperative, well kempt and well developed Orientation / Consciousness: awake, oriented to person, oriented to place and oriented to time HEENT normocephalic, head/scalp atraumatic and moist oral mucous membranes Eyes PERRL, EOMs intact bilaterally and conjunctivae normal Neck supple, no JVD, thyroid normal and no carotid bruits General: trachea midline Resp normal respiratory effort, no retractions, no use of accessory muscles and clear to auscultation bilaterally Auscultation: Negative for rales, rhonchi or wheezes Cardio regular rate, regular rhythm, S1 normal heart sound, S2 normal heart sound, no murmurs, no rub and no gallops GI normal to inspection, nondistended, normoactive bowel sounds, soft to palpation, non-tender and non-distended Extremity Extremity Narrative: Patient's right foot was not examined during the time of my visit today Skin no rashes or lesions noted General Skin Exam: no breakdown Neuro oriented x3, CN's II-XII intact bilaterally, no focal motor deficits and no sensory deficits noted Sensorium / Orientation: awake and alert Speech: speech normal Psych affect normal Assessment & Plan Assessment/Plan (1) Acute osteomyelitis of right foot: PLAN: Plan 1. Osteomyelitis of the right second toe-infectious diseases is participating in his care and podiatry is also seeing the patient, patient underwent amputation of the right second toe today without complication #2 type 2 diabetes-patient's blood sugars will be monitored, sliding scale insulin will be administered if needed #3 essential hypertension-patient will remain on his home medications Total clinical time spent by myself addressing the patient's medical issues, reviewing all of his data, and collaborating with patient's care team: 35 minutes Charges/Coding Visit Charges Inpatient E&M: 08711 Subs Hosp L2
--- NOTE | 2024-06-11 21:28 | POSTOPAN2_ITS ---
Anesthesia Postop Eval I Sum Postop Eval Completion status Anesthesia document: Postop Eval 1 completed: Yes Anesthesia Postop Eval I Summary Anesthesia Postop Eval I Summary: Anesthesia Postop Eval I: Assessment Summary Airway patent Yes 06/11/24 14:09 HAND CIGAR [email or web address] Spontaneous unlabored Yes 06/11/24 14:09 HAND CIGAR [email or web address] respirations Mental status Awake,Calm 06/11/24 14:09 HAND CIGAR [email or web address] nausea No 06/11/24 14:09 HAND CIGAR [email or web address].[email or web address] Vomiting No 06/11/24 14:09 HAND CIGAR [email or web address] Anesthesia Postop Eval I: Fluid Summary Crystalloid volume administer 400 06/11/24 14:09 HAND CIGAR [email or web address] (ml) Colloids volume administered ( ml) Blood Product volume administered (ml) Total IV fluid infused 400 06/11/24 14:09 HAND CIGAR [email or web address] Anesthesia Postop Eval I: Summary Notes Anesthesia Complication No 06/11/24 14:09 HAND CIGAR [email or web address] Anesthesia Complication Comment: Post-operative progress note Anesthesia: Postop Eval II Evaluation Mental status: Awake and Calm Pain Level: 1 nausea: No Vomiting: No Complications Anesthesia Complication: No
--- NOTE | 2024-06-11 21:28 | PCM.POSTANE2 ---
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 Spontaneous unlabored Yes 06/11/24 14:09 AUTOMOTIVE SERVICE PORTER.[email or web address] respirations Mental status Awake,Calm 06/11/24 14:09 AUTOMOTIVE SERVICE PORTER.[email or web address] nausea No 06/11/24 14:09 AUTOMOTIVE SERVICE PORTER.[email or web address] Vomiting No 06/11/24 14:09 AUTOMOTIVE SERVICE PORTER.[email or web address] Anesthesia Postop Eval I: Fluid Summary Crystalloid volume administer 400 06/11/24 14:09 AUTOMOTIVE SERVICE PORTER.[email or web address] (ml) Colloids volume administered ( ml) Blood Product volume administered (ml) Total IV fluid infused 400 06/11/24 14:09 AUTOMOTIVE SERVICE [email or web address].[email or web address] Anesthesia Postop Eval I: Summary Notes Anesthesia Complication No 06/11/24 14:09 AUTOMOTIVE SERVICE PORTER.[email or web address] Anesthesia Complication Comment: Post-operative progress note Anesthesia: Postop Eval II Evaluation Mental status: Awake and Calm Pain Level: 1 nausea: No Vomiting: No Complications Anesthesia Complication: No
[2024-06-11] MEDS: Acetaminophen 325 MG Tablet 650 MG PO (23:21)
[2024-06-11 23:27] LABS: Hemoglobin A1c 8.1 % (<=5.6)
[2024-06-11 23:55] LABS: Bedside Glucose 113 mg/dL (74-106)
[2024-06-12 05:19] VITALS: BP 123/60; PULSE 60; RESP 16; TEMP 36.4; O2SAT 96
[2024-06-12] MEDS: metroNIDAZOLE 500 MG Tablet PO ×3 (05:27→20:46)
[2024-06-12 06:00] VITALS: BMI 29.0
[2024-06-12] MEDS: Insulin Lispro 100 UNIT/ML INSULN.PEN SC ×4 (06:31→20:53)
[2024-06-12 06:52] LABS: Bedside Glucose 164 mg/dL (74-106)
--- NOTE | 2024-06-12 07:54 | PCM.PROGNOTE ---
Subjective Subjective Patient was seen this morning for follow up on right foot. He is resting comfortably in bed and appears pain is well controlled. He does not relate to f/c/n/v. Objective Data Objective Data Vital Signs: Vital Signs Temp Pulse Resp BP Pulse Ox O2 Del Method 97.6 F L 60 16 123/60 H 96 Room Air 06/12/24 05:19 06/12/24 05:19 06/12/24 05:19 06/12/24 05:19 06/12/24 05:19 06/12/24 05:19 Oxygen Delivery Method Room Air Weight: 83.8 kg Body Mass Index (BMI) 29.0 Intake & Output: Intake and Output for Last 24 Hours 06/10/24 06/11/24 06/12/24 23:59 23:59 23:59 Intake Total 2571.5 / 2571.5 670 / 670 1200 / 1200 Balance 2571.5 / 2571.5 670 / 670 1200 / 1200 Lab / Micro Data 06/10/24 07:23 06/10/24 07:23 Labs: Laboratory Results - last 24 hr 06/10/24 07:23: Hemoglobin A1c 8.1 06/11/24 07:26: Phosphorus 2.8 06/11/24 10:13: Vancomycin Trough 12.7 06/11/24 11:21: POC Glucose 104 06/11/24 16:09: POC Glucose 159 H 06/11/24 22:47: POC Glucose 113 H 06/12/24 06:18: POC Glucose 164 H Radiography Diagnostic Testing: Radiology Impression Extremity Arterial Study 06/10/24 15:49 Interpretation Summary Right RAFI 1.21, normal. Doppler/PVR waveforms of the right leg normal at rest. 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 Left RAFI 1.2, normal. Doppler/PVR waveforms of the left leg normal at rest. 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 Ordering Physician: Nasim Gudino Referring Physician: Leti Villatoro Performed By: Gavin Danielson, RVT Foot X-Ray 06/11/24 14:01 IMPRESSION: Interval amputation of the 2nd digit at the level of the mid metatarsal. Osteotomy site is smooth and without suspicious erosive changes. 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 Negative for acute fracture or dislocation. No radiopaque foreign body. [facility] Physical Exam Const alert, oriented x3 and no apparent distress Constitutional Narrative: s/p right 2nd toe amputation and 2nd metatarsal resection - incision site well coapted, no dehiscense, no maloder, no necrosis, no visible abscess, there is some erythema/ecchymosis to dorsal foot - minimal, no drainage, no crepitus, no fluctuance, no evidence of acute ischemia, CFT < 2 seconds to remaining toes right foot, no evidence of DVT. Assessment & Plan Assessment/Plan (1) Diabetic foot ulcer: QUALIFIERS: Diabetic foot ulcer location: toe Diabetes mellitus type: type 2 Laterality: right Non-pressure ulcer stage: unspecified non-pressure ulcer stage Qualified Code(s): E11.621 - Type 2 diabetes mellitus with foot ulcer; L97.519 - Non-pressure chronic ulcer of other part of right foot with unspecified severity (2) Acute osteomyelitis of right foot: PLAN: Plan Evaluation performed. s/p right 2nd toe and 2nd metatarsal resection on 06/11/2024 - healing appropriately at this time. Patient is on IV antibiotics Vancomycin and Zosyn - Dr. Drummond on consult. Surgical cultures pending. LEAS - reviewed there is noted to be diminished TBI, clinically good arterial flow to foot. Right foot dressing care: Betadine soln to incision site, 4x4 gauze, kerlix and gabriele dressing changes daily. Keep right foot elevated. Ok to put limited weightbearing on right heel - no weight on right forefoot. Podiatry will continue to follow
[2024-06-12] MEDS: Glucerna Shake 120 ML LIQUID PO ×3 (08:23→16:44)
[2024-06-12] MEDS: Ascorbic Acid 500 MG Tablet 1000 MG PO ×2 (08:24→16:44)
[2024-06-12] MEDS: Folic Acid 1 MG Tablet PO (08:24)
[2024-06-12] MEDS: Lactobacillis Acidophilus 1 CAP PO ×3 (08:24→20:46)
[2024-06-12] MEDS: Cholecalciferol (Vit D3) 125 MCG CAPSULE (5,000 UNITS) PO (08:25)
[2024-06-12] MEDS: Zinc Sulfate 50 mg zinc (220 mg) ORAL capsule PO (08:25)
[2024-06-12] MEDS: hydroCHLOROthiazide 12.5mg 12.5 MG PO (08:25)
[2024-06-12] MEDS: Lisinopril 20 MG Tablet PO (08:25)
[2024-06-12] MEDS: Enoxaparin 40 MG/0.4 ML Syringe SC (08:25)
[2024-06-12 08:31] VITALS: BP 121/71; PULSE 60; RESP 18; TEMP 36.6; O2SAT 96
[2024-06-12 08:35] VITALS: PULSE 60
[2024-06-12] MEDS: Ceftriaxone 2 GM in 0.9% Normal Saline (50mL MB+) 50 ML IV (09:29)
[2024-06-12] MEDS: Vancomycin IV 1,000 MG/200 ML BAG 200 MG IV (11:08)
[2024-06-12 11:37] LABS: Bedside Glucose 165 mg/dL (74-106)
[2024-06-12 13:39] VITALS: BP 147/70; PULSE 66; RESP 18; TEMP 36.7; O2SAT 94
--- NOTE | 2024-06-12 13:55 | PN.ID_ITS ---
Physical Exam Narrative Feeling better s/p OR. No fever, no n/v/d. Const alert and no apparent distress General Appearance: cooperative Resp normal air movement and clear to auscultation bilaterally Cardio regular rate and regular rhythm GI soft to palpation, non-tender and non-distended Skin no rashes or lesions noted Skin Narrative: foot wrapped ID ID: Route of nutrition/ use of supplements: [] Nutritional Intake: [] IV Site: [] Ruiz Catheter: [] Assessment & Plan Assessment/Plan (1) Septic arthritis: QUALIFIERS: Septic arthritis location: foot Septic arthritis organism: due to unspecified organism Laterality: right Qualified Code(s): M00.9 - Pyogenic arthritis, unspecified PLAN: MRI 05/27/24 in [facility] system with R 2nd toe osteo and septic arthritis. Cellulitis improved. Taken to OR 06/11/[address] Gudino for toe amp and partial 2nd met resection. Cont vanc/ceftriaxone/flagyl. Will follow (2) Osteomyelitis: QUALIFIERS: Osteomyelitis type: unspecified type Osteomyelitis location: foot Laterality: right Qualified Code(s): M86.9 - Osteomyelitis, unspecified (3) Diabetes mellitus: QUALIFIERS: Diabetes mellitus type: type 2 Diabetes mellitus nursing home insulin use: without assistant terminal manager use Diabetes mellitus complication status: with skin complications Diabetes mellitus complication detail: with foot ulcer Qualified Code(s): E11.621 - Type 2 diabetes mellitus with foot ulcer; L97.509 - Non-pressure chronic ulcer of other part of unspecified foot with unspecified severity
--- NOTE | 2024-06-12 14:16 | CASEMGMT ---
USHA SAGASTUME into pt room, discussed with pt wound care and if he felt he could manage this at home. Pt states he feels that he can. Discussed his wt bearing status. Pt feels that he is maintaining wt bearing status with limited wt on his heel. Plan for pt to stay in hospital pending cx. USHA SAGASTUME to f/u on Saturday and follow for ID recs.
[2024-06-12 17:00] VITALS: PULSE 58
[2024-06-12 17:12] LABS: Bedside Glucose 190 mg/dL (74-106)
--- NOTE | 2024-06-12 17:21 | PCM.PN.HOSP ---
Reason for Visit Reason for Visit: Diagnoses Type 2 diabetes mellitus with foot ulcer (06/09/24) Overweight (06/09/24) Non-pressure chronic ulcer of other part of unspecified foot with unspecified severity (06/09/24) Non-pressure chronic ulcer of other part of right foot with unspecified severity (06/09/24) Pyogenic arthritis, unspecified (06/09/24) Other acute osteomyelitis, right ankle and foot (06/09/24) Osteomyelitis, unspecified (06/09/24) Subjective Subjective Patient was seen and examined today, I talked to infectious diseases about his medical care, patient remains on IV antibiotics at this point, cultures have not resulted yet from the patient's right second toe. Objective Data Objective Data Vital Signs: Vital Signs Temp Pulse Resp BP Pulse Ox O2 Del Method 98.1 F 66 18 147/70 H 94 Room Air 06/12/24 13:39 06/12/24 13:39 06/12/24 13:39 06/12/24 13:39 06/12/24 13:39 06/12/24 13:39 Oxygen Delivery Method Room Air Weight: 83.8 kg Body Mass Index (BMI) 29.0 Intake & Output: Intake and Output for Last 24 Hours 06/10/24 06/11/24 06/12/24 23:59 23:59 23:59 Intake Total 2571.5 / 2571.5 670 / 670 2020 Balance 2571.5 / 2571.5 670 / 670 2020 Lab / Micro Data 06/10/24 07:23 06/10/24 07:23 Labs: Laboratory Results - last 24 hr 06/10/24 07:23: Hemoglobin A1c 8.1 06/11/24 22:47: POC Glucose 113 H 06/12/24 06:18: POC Glucose 164 H 06/12/24 11:06: POC Glucose 165 H 06/12/24 16:40: POC Glucose 190 H Micro: Microbiology 06/11/24 14:36 Bone - 2nd Metatarsal Bone Gram Stain - Final 06/11/24 14:36 Bone - 2nd Metatarsal Bone Wound Culture - Preliminary No growth-Final to follow 06/11/24 14:36 Bone - 2nd Metatarsal Bone Gram Stain - Final 06/11/24 14:36 Bone - 2nd Metatarsal Bone Wound Culture - Preliminary No growth-Final to follow 06/09/24 20:23 Blood Culture (Wb) - Right Hand Blood Culture - Preliminary No growth in 48 hours. 06/09/24 20:15 Blood Culture (Wb) - Anticubital Left Blood Culture - Preliminary No growth in 48 hours. Physical Exam Narrative alert, oriented x3, no apparent distress, average body habitus and healthy appearing General Appearance: cooperative, well kempt and well developed Orientation / Consciousness: awake, oriented to person, oriented to place and oriented to time HEENT normocephalic, head/scalp atraumatic and moist oral mucous membranes Eyes PERRL, EOMs intact bilaterally and conjunctivae normal Neck supple, no JVD, thyroid normal and no carotid bruits General: trachea midline Resp normal respiratory effort, no retractions, no use of accessory muscles and clear to auscultation bilaterally Auscultation: Negative for rales, rhonchi or wheezes Cardio regular rate, regular rhythm, S1 normal heart sound, S2 normal heart sound, no murmurs, no rub and no gallops GI normal to inspection, nondistended, normoactive bowel sounds, soft to palpation, non-tender and non-distended Extremity Extremity Narrative: Patient's right foot was not examined during the time of my visit today Skin no rashes or lesions noted General Skin Exam: no breakdown Neuro oriented x3, CN's II-XII intact bilaterally, no focal motor deficits and no sensory deficits noted Sensorium / Orientation: awake and alert Speech: speech normal Psych affect normal Assessment & Plan Assessment/Plan (1) Acute osteomyelitis of right foot: PLAN: Plan 1. Osteomyelitis of the right second toe-infectious diseases is participating in his care and podiatry is also seeing the patient, patient underwent amputation of the right second toe, continue PT and OT #2 type 2 diabetes-patient's blood sugars will be monitored, sliding scale insulin will be administered if needed #3 essential hypertension-patient will remain on his home medications Total clinical time spent by myself addressing the patient's medical issues, reviewing all of his data, and collaborating with patient's care team: 35 minutes Charges/Coding Visit Charges Inpatient E&M: 61461 Subs Hosp L2
[2024-06-12 20:30] VITALS: BP 143/73; PULSE 55; RESP 16; TEMP 36.4; O2SAT 95
[2024-06-12 21:16] LABS: Bedside Glucose 169 mg/dL (74-106)
[2024-06-13 00:28] LABS: Vancomycin, Trough Level 16.7 ug/mL (5.0-15.0)
[2024-06-13] MEDS: Vancomycin IV 1,000 MG/200 ML BAG 200 MG IV ×3 (00:39→22:30)
--- NOTE | 2024-06-13 00:42 | PCM.RX.CS ---
Consult Antibiotic Management Pharmacy has been consulted to manage selected antibiotic: Vancomycin Type of Intervention Type of Consult: Follow-up Suspected Infection Suspected Infection: Osteomyelitis Labs Labs: Sodium 133 mmol/L (133-145) 06/10/24 07:23 Potassium 4.3 mmol/L (3.3-5.1) 06/10/24 07:23 Carbon Dioxide 17.8 mmol/L (22.0-29.0) L 06/10/24 07:23 Anion Gap 14 (5-15) 06/10/24 07:23 BUN 17 mg/dL (4-19) 06/10/24 07:23 Creatinine 0.9 mg/dL (0.8-1.3) 06/10/24 07:23 Est GFR (MDRD) Non-Af 83 (>60) 06/10/24 07:23 BUN/Creatinine Ratio 18.2 RATIO (10-20) 06/10/24 07:23 Glucose 115 mg/dL (70-99) H 06/10/24 07:23 Vancomycin Trough 16.7 ug/mL (5.0-15.0) H 06/12/24 23:15 Microbiology Microbiology: Microbiology 06/11/24 14:36 Bone - 2nd Metatarsal Bone Gram Stain - Final 06/11/24 14:36 Bone - 2nd Metatarsal Bone Wound Culture - Preliminary No growth-Final to follow 06/11/24 14:36 Bone - 2nd Metatarsal Bone Gram Stain - Final 06/11/24 14:36 Bone - 2nd Metatarsal Bone Wound Culture - Preliminary No growth-Final to follow 06/09/24 20:23 Blood Culture (Wb) - Right Hand Blood Culture - Preliminary No growth in 48 hours. 06/09/24 20:15 Blood Culture (Wb) - Anticubital Left Blood Culture - Preliminary No growth in 48 hours. Dosing Weight Weight used for dosin kg Estimated Creatinine Clearance Estimated Creatinine Clearance: 73 Goal Trough Goal Trough: 15-20 mcg/mL Pharmacy Plan for Drug Dosing Pharmacy Plan for Drug Dosing: Vancomycin trough level of 16.7, drawn 12hrs post-dose, was within the target range of 15-20. Will continue dosing at 1000mg q12h, and will draw another trough level in two days. Pharmacy Service will continue to monitor and adjust dosing as required. Follow-Up Labs Follow-Up Labs: Trough: Vancomycin Date/Time Labs Ordered Labs to be done on [date and time ordered]: 06/14/24 @4203
[2024-06-13 05:43] VITALS: BP 142/70; PULSE 53; RESP 18; TEMP 36.6; O2SAT 96
[2024-06-13 05:47] VITALS: PULSE 50
[2024-06-13] MEDS: metroNIDAZOLE 500 MG Tablet PO ×3 (05:49→22:31)
[2024-06-13 06:00] VITALS: BMI 30.5
[2024-06-13 06:46] LABS: Bedside Glucose 112 mg/dL (74-106)
--- NOTE | 2024-06-13 09:26 | PN_ITS ---
Subjective Subjective Patient was seen this morning for follow up on his right foot. He is resting in bed, no new complaints, no pain at this time, no calf pain. Objective Data Objective Data Vital Signs: Vital Signs Temp Pulse Resp BP Pulse Ox O2 Del Method 97.9 F 50 L 18 142/70 H 96 Room Air 06/13/24 05:43 06/13/24 05:47 06/13/24 05:43 06/13/24 05:43 06/13/24 05:43 06/13/24 05:43 Oxygen Delivery Method Room Air Weight: 88.2 kg Body Mass Index (BMI) 30.5 Intake & Output: Intake and Output for Last 24 Hours 06/11/24 06/12/24 06/13/24 23:59 23:59 23:59 Intake Total 670 / 670 2361 / 2361 1000 / 1000 Balance 670 / 670 2361 / 2361 1000 / 1000 Lab / Micro Data 06/10/24 07:23 06/10/24 07:23 Labs: Laboratory Results - last 24 hr 06/12/24 11:06: POC Glucose 165 H 06/12/24 16:40: POC Glucose 190 H 06/12/24 20:51: POC Glucose 169 H 06/12/24 23:15: Vancomycin Trough 16.7 H 06/13/24 06:27: POC Glucose 112 H Micro: Microbiology 06/11/24 14:36 Bone - 2nd Metatarsal Bone Gram Stain - Final 06/11/24 14:36 Bone - 2nd Metatarsal Bone Wound Culture - Preliminary No growth-Final to follow 06/11/24 14:36 Bone - 2nd Metatarsal Bone Gram Stain - Final 06/11/24 14:36 Bone - 2nd Metatarsal Bone Wound Culture - Preliminary No growth-Final to follow 06/09/24 20:23 Blood Culture (Wb) - Right Hand Blood Culture - Preliminary No growth in 48 hours. 06/09/24 20:15 Blood Culture (Wb) - Anticubital Left Blood Culture - Preliminary No growth in 48 hours. Physical Exam Const alert, oriented x3 and no apparent distress Constitutional Narrative: s/p right 2nd toe amputation and 2nd metatarsal resection - incision site well coapted, no dehiscense, no maloder, no necrosis, no visible abscess, there is some erythema to dorsal foot - minimal and very much improved, no drainage, no crepitus, no fluctuance, no evidence of acute ischemia, CFT < 2 seconds to remaining toes right foot, no evidence of DVT. Assessment & Plan Assessment/Plan (1) Diabetic foot ulcer: QUALIFIERS: Diabetic foot ulcer location: toe Diabetes mellitus type: type 2 Laterality: right Non-pressure ulcer stage: unspecified non- pressure ulcer stage Qualified Code(s): E11.621 - Type 2 diabetes mellitus with foot ulcer; L97.519 - Non-pressure chronic ulcer of other part of right foot with unspecified severity (2) Acute osteomyelitis of right foot: PLAN: Plan Evaluation performed. s/p right 2nd toe and 2nd metatarsal resection on 06/11/2024 - healing appropriately at this time. Patient is on IV antibiotics Vancomycin and Zosyn - Dr. Drummond on consult. Surgical cultures pending - so far no growth. LEAS - reviewed there is noted to be diminished TBI vs spasm, clinically good arterial flow to foot. Right foot dressing care: 4x4 gauze, kerlix and gabriele dressing changes daily. Keep right foot elevated. Ok to put limited weightbearing on right heel - no weight on right forefoot. Podiatry will continue to follow
[2024-06-13] MEDS: Folic Acid 1 MG Tablet PO (10:24)
[2024-06-13] MEDS: Lactobacillis Acidophilus 1 CAP PO ×4 (10:24→22:30)
[2024-06-13] MEDS: Ascorbic Acid 500 MG Tablet 1000 MG PO ×2 (10:24→17:35)
[2024-06-13] MEDS: Enoxaparin 40 MG/0.4 ML Syringe SC (10:25)
[2024-06-13] MEDS: hydroCHLOROthiazide 12.5mg 12.5 MG PO (10:25)
[2024-06-13] MEDS: Lisinopril 20 MG Tablet PO (10:26)
[2024-06-13] MEDS: Cholecalciferol (Vit D3) 125 MCG CAPSULE (5,000 UNITS) PO (10:26)
[2024-06-13] MEDS: Zinc Sulfate 50 mg zinc (220 mg) ORAL capsule PO (10:26)
[2024-06-13] MEDS: Ceftriaxone 2 GM in 0.9% Normal Saline (50mL MB+) 50 ML IV (10:31)
[2024-06-13 11:00] VITALS: BP 138/66; PULSE 56; RESP 16; TEMP 36.6; O2SAT 98
[2024-06-13] MEDS: Glucerna Shake 120 ML LIQUID PO (11:44)
[2024-06-13 12:06] LABS: Bedside Glucose 174 mg/dL (74-106)
--- NOTE | 2024-06-13 13:34 | PCM.PN.HOSP ---
Reason for Visit Reason for Visit: Diagnoses Type 2 diabetes mellitus with foot ulcer (06/09/24) Overweight (06/09/24) Non-pressure chronic ulcer of other part of unspecified foot with unspecified severity (06/09/24) Non-pressure chronic ulcer of other part of right foot with unspecified severity (06/09/24) Pyogenic arthritis, unspecified (06/09/24) Other acute osteomyelitis, right ankle and foot (06/09/24) Osteomyelitis, unspecified (06/09/24) Subjective Subjective Patient was seen and examined today, there has been no growth from the patient's wound culture in 48 hours. Objective Data Objective Data Vital Signs: Vital Signs Temp Pulse Resp BP Pulse Ox O2 Del Method 97.8 F 56 L 16 138/66 H 98 Room Air 06/13/24 11:00 06/13/24 11:00 06/13/24 11:00 06/13/24 11:00 06/13/24 11:00 06/13/24 11:00 Oxygen Delivery Method Room Air Weight: 88.2 kg Body Mass Index (BMI) 30.5 Intake & Output: Intake and Output for Last 24 Hours 06/11/24 06/12/24 06/13/24 23:59 23:59 23:59 Intake Total 670 / 670 2361 / 2361 1919.5 / 1919.5 Balance 670 / 670 2361 / 2361 1919.5 / 1918.5 Lab / Micro Data 06/10/24 07:23 06/10/24 07:23 Labs: Laboratory Results - last 24 hr 06/12/24 16:40: POC Glucose 190 H 06/12/24 20:51: POC Glucose 169 H 06/12/24 23:15: Vancomycin Trough 16.7 H 06/13/24 06:27: POC Glucose 112 H 06/13/24 11:40: POC Glucose 174 H Micro: Microbiology 06/11/24 14:36 Bone - 2nd Metatarsal Bone Gram Stain - Final 06/11/24 14:36 Bone - 2nd Metatarsal Bone Wound Culture - Preliminary No growth-Final to follow 06/11/24 14:36 Bone - 2nd Metatarsal Bone Anaerobic Culture - Preliminary No growth in 48 hours. 06/11/24 14:36 Bone - 2nd Metatarsal Bone Gram Stain - Final 06/11/24 14:36 Bone - 2nd Metatarsal Bone Wound Culture - Preliminary Coag Negative Staph 06/11/24 14:36 Bone - 2nd Metatarsal Bone Anaerobic Culture - Preliminary No growth in 48 hours. 06/09/24 20:23 Blood Culture (Wb) - Right Hand Blood Culture - Preliminary No growth in 48 hours. 06/09/24 20:15 Blood Culture (Wb) - Anticubital Left Blood Culture - Preliminary No growth in 48 hours. Physical Exam Narrative alert, oriented x3, no apparent distress, average body habitus and healthy appearing General Appearance: cooperative, well kempt and well developed Orientation / Consciousness: awake, oriented to person, oriented to place and oriented to time HEENT normocephalic, head/scalp atraumatic and moist oral mucous membranes Eyes PERRL, EOMs intact bilaterally and conjunctivae normal Neck supple, no JVD, thyroid normal and no carotid bruits General: trachea midline Resp normal respiratory effort, no retractions, no use of accessory muscles and clear to auscultation bilaterally Auscultation: Negative for rales, rhonchi or wheezes Cardio regular rate, regular rhythm, S1 normal heart sound, S2 normal heart sound, no murmurs, no rub and no gallops GI normal to inspection, nondistended, normoactive bowel sounds, soft to palpation, non-tender and non-distended Extremity Extremity Narrative: Patient's right foot was not examined during the time of my visit today Skin no rashes or lesions noted General Skin Exam: no breakdown Neuro oriented x3, CN's II-XII intact bilaterally, no focal motor deficits and no sensory deficits noted Sensorium / Orientation: awake and alert Speech: speech normal Psych affect normal Assessment & Plan Assessment/Plan (1) Acute osteomyelitis of right foot: PLAN: Plan 1. Osteomyelitis of the right second toe-infectious diseases is participating in his care and podiatry is also seeing the patient, patient underwent amputation of the right second toe, continue PT and OT, continue present antibiotic coverage #2 type 2 diabetes-patient's blood sugars will be monitored, sliding scale insulin will be administered if needed #3 essential hypertension-patient will remain on his home medications Total clinical time spent by myself addressing the patient's medical issues, reviewing all of his data, and collaborating with patient's care team: 35 minutes Charges/Coding Visit Charges Inpatient E&M: 72006 Subs Hosp L2
[2024-06-13 16:17] VITALS: BP 122/65; PULSE 51; RESP 16; TEMP 36.3; O2SAT 97
[2024-06-13 17:13] LABS: Bedside Glucose 216 mg/dL (74-106)
[2024-06-13] MEDS: Insulin Lispro 100 UNIT/ML INSULN.PEN SC (17:34)
[2024-06-13 22:22] VITALS: BP 140/65; PULSE 65; RESP 16; TEMP 36.4; O2SAT 95
[2024-06-13] MEDS: 0.9% Saline Lock 10 ML Syringe IV (22:36)
[2024-06-13 22:55] LABS: Bedside Glucose 148 mg/dL (74-106)
[2024-06-14 04:31] VITALS: BP 135/66; PULSE 62; RESP 14; TEMP 36.4; O2SAT 97
[2024-06-14 04:32] VITALS: PULSE 62
[2024-06-14 06:00] VITALS: BMI 30.8
[2024-06-14] MEDS: metroNIDAZOLE 500 MG Tablet PO ×3 (06:35→21:34)
[2024-06-14] MEDS: Insulin Lispro 100 UNIT/ML INSULN.PEN SC ×2 (06:36→12:12)
[2024-06-14 07:10] LABS: Bedside Glucose 156 mg/dL (74-106)
[2024-06-14] MEDS: Ceftriaxone 2 GM in 0.9% Normal Saline (50mL MB+) 50 ML IV (09:24)
[2024-06-14] MEDS: 0.9% Saline Lock 10 ML Syringe IV (09:25)
[2024-06-14] MEDS: Enoxaparin 40 MG/0.4 ML Syringe SC (09:26)
[2024-06-14] MEDS: Lactobacillis Acidophilus 1 CAP PO ×4 (09:26→21:34)
[2024-06-14] MEDS: Ascorbic Acid 500 MG Tablet 1000 MG PO ×2 (09:26→17:16)
[2024-06-14] MEDS: hydroCHLOROthiazide 12.5mg 12.5 MG PO (09:26)
[2024-06-14] MEDS: Folic Acid 1 MG Tablet PO (09:26)
[2024-06-14] MEDS: Zinc Sulfate 50 mg zinc (220 mg) ORAL capsule PO (09:27)
[2024-06-14] MEDS: Lisinopril 20 MG Tablet PO (09:27)
[2024-06-14] MEDS: Cholecalciferol (Vit D3) 125 MCG CAPSULE (5,000 UNITS) PO (09:27)
[2024-06-14 10:30] VITALS: BP 138/71; PULSE 62; RESP 16; TEMP 36.6; O2SAT 98
--- NOTE | 2024-06-14 11:23 | PCM.PROGNOTE ---
Subjective Subjective Patient was seen this morning for follow up on right foot. He is resting comfortably in bed, no new complaints, no complaints of f/c/n/v. Objective Data Objective Data Vital Signs: Vital Signs Temp Pulse Resp BP Pulse Ox O2 Del Method 97.5 F L 62 14 135/66 H 97 Room Air 06/14/24 04:31 06/14/24 04:32 06/14/24 04:31 06/14/24 04:31 06/14/24 04:31 06/14/24 04:31 Oxygen Delivery Method Room Air Weight: 89.1 kg Body Mass Index (BMI) 30.8 Intake & Output: Intake and Output for Last 24 Hours 06/12/24 06/13/24 06/14/24 23:59 23:59 23:59 Intake Total 2361 / 2361 2119.5 / 2419.5 300 / 300 Balance 2361 / 2361 2119.5 / 2419.5 300 / 300 Lab / Micro Data 06/10/24 07:23 06/10/24 07:23 Labs: Laboratory Results - last 24 hr 06/13/24 11:40: POC Glucose 174 H 06/13/24 16:55: POC Glucose 216 H 06/13/24 22:32: POC Glucose 148 H 06/14/24 06:30: POC Glucose 156 H Micro: Microbiology 06/11/24 14:36 Bone - 2nd Metatarsal Bone Gram Stain - Final 06/11/24 14:36 Bone - 2nd Metatarsal Bone Wound Culture - Final No growth aerobically. 06/11/24 14:36 Bone - 2nd Metatarsal Bone Anaerobic Culture - Preliminary No growth in 48 hours. 06/11/24 14:36 Bone - 2nd Metatarsal Bone Gram Stain - Final 06/11/24 14:36 Bone - 2nd Metatarsal Bone Wound Culture - Final Staphylococcus epidermidis 06/11/24 14:36 Bone - 2nd Metatarsal Bone Anaerobic Culture - Preliminary No growth in 48 hours. 06/09/24 20:23 Blood Culture (Wb) - Right Hand Blood Culture - Preliminary No growth in 48 hours. 06/09/24 20:15 Blood Culture (Wb) - Anticubital Left Blood Culture - Preliminary No growth in 48 hours. Physical Exam Const alert, oriented x3 and no apparent distress Constitutional Narrative: s/p right 2nd toe amputation and 2nd metatarsal resection - incision site well coapted, no dehiscense, no maloder, no necrosis, no visible abscess, there is very minimal erythema to dorsal foot at surgical site - continues to improve, no drainage, no crepitus, no fluctuance, no evidence of acute ischemia, CFT < 2 seconds to remaining toes right foot, no evidence of DVT. Right foot healing well. Assessment & Plan Assessment/Plan (1) Diabetic foot ulcer: QUALIFIERS: Diabetes mellitus type: type 2 Diabetic foot ulcer location: toe Laterality: right Non-pressure ulcer stage: unspecified non-pressure ulcer stage Qualified Code(s): E11.621 - Type 2 diabetes mellitus with foot ulcer; L97.519 - Non-pressure chronic ulcer of other part of right foot with unspecified severity (2) Acute osteomyelitis of right foot: PLAN: Plan Evaluation performed. s/p right 2nd toe and 2nd metatarsal resection on 06/11/2024 - continues to heal appropriately at this time. Patient is on IV antibiotics Vancomycin and Zosyn - Dr. Drummond on consult. Surgical cultures pending - very rare staph epi on 2nd metatarsal clearance fragment - otherwise no growth. LEAS - reviewed there is noted to be diminished TBI vs spasm, clinically good arterial flow to foot. Right foot dressing care: 4x4 gauze, kerlix and gabriele dressing changes daily. Keep right foot elevated. Ok to put limited weightbearing on right heel - no weight on right forefoot. Podiatry will continue to follow
[2024-06-14] MEDS: Vancomycin IV 1,000 MG/200 ML BAG 200 MG IV (11:28)
--- NOTE | 2024-06-14 11:38 | PN.HOSP_ITS ---
Reason for Visit Reason for Visit: Diagnoses Type 2 diabetes mellitus with foot ulcer (06/09/24) Overweight (06/09/24) Non-pressure chronic ulcer of other part of unspecified foot with unspecified severity (06/09/24) Non-pressure chronic ulcer of other part of right foot with unspecified severity (06/09/24) Pyogenic arthritis, unspecified (06/09/24) Other acute osteomyelitis, right ankle and foot (06/09/24) Osteomyelitis, unspecified (06/09/24) Objective Data Objective Data Vital Signs: Vital Signs Temp Pulse Resp BP Pulse Ox O2 Del Method 97.8 F 62 16 138/71 H 98 Room Air 06/14/24 10:30 06/14/24 10:30 06/14/24 10:30 06/14/24 10:30 06/14/24 10:30 06/14/24 11:00 Oxygen Delivery Method Room Air Weight: 196 lb 6.91 oz Body Mass Index (BMI) 30.8 Intake & Output: Intake and Output for Last 24 Hours 06/12/24 06/13/24 06/14/24 23:59 23:59 23:59 Intake Total 2361 / 2361 2119.5 / 2419.5 350 / 350 Balance 2361 / 2361 2119.5 / 2419.5 350 / 350 Lab / Micro Data 06/10/24 07:23 06/10/24 07:23 Labs: Laboratory Results - last 24 hr 06/13/24 11:40: POC Glucose 174 H 06/13/24 16:55: POC Glucose 216 H 06/13/24 22:32: POC Glucose 148 H 06/14/24 06:30: POC Glucose 156 H Micro: Microbiology 06/11/24 14:36 Bone - 2nd Metatarsal Bone Gram Stain - Final 06/11/24 14:36 Bone - 2nd Metatarsal Bone Wound Culture - Final No growth aerobically. 06/11/24 14:36 Bone - 2nd Metatarsal Bone Anaerobic Culture - Preliminary No growth in 48 hours. 06/11/24 14:36 Bone - 2nd Metatarsal Bone Gram Stain - Final 06/11/24 14:36 Bone - 2nd Metatarsal Bone Wound Culture - Final Staphylococcus epidermidis 06/11/24 14:36 Bone - 2nd Metatarsal Bone Anaerobic Culture - Preliminary No growth in 48 hours. 06/09/24 20:23 Blood Culture (Wb) - Right Hand Blood Culture - Preliminary No growth in 48 hours. 06/09/24 20:15 Blood Culture (Wb) - Anticubital Left Blood Culture - Preliminary No growth in 48 hours. Physical Exam Narrative Seen and examined. Patient had right second toe and metatarsal amputation for osteomyelitis. No fever. On IV antibiotics. ID follow-up tomorrow. Physical exam General: Alert, Oriented x3, Cooperative HEENT: Atraumatic, PERRLA, EOMI, Normocephalic Oral: No Gingival or Mucosal Lesions/ Ulcerations Neck: Supple, No JVD, Negative Carotid Bruits Chest wall/Lungs: Air entry diminished in bilateral lung bases. No crepitation/rhonchi Cardiovascular: Regular rate, Regular Rhythm, Normal S1, Normal S2, No M/G/R Abdomen: Bowel Sounds Present, Soft, Non Tender, Non-Distended : No dysuria. No renal angle tenderness. No suprapubic tenderness. Extremities: No edema, Capillary Refill Less than 3 Seconds Skin: Right foot surgical dressing is dry. No acute tenderness. Cellulitis improved Musculoskeletal: No Tenderness to Palpation of Joints or Extremities ROM restricted over right foot. Neurological: Cranial nerves II-XII grossly intact, DTR 2+/4. No acute focal neurological deficit. Psych/Mental Status: Normal Affect, Appropriate. Assessment & Plan Assessment/Plan (1) Acute osteomyelitis of right foot: PLAN: Plan 74-year-old gentleman was admitted with right second toe osteomyelitis with localized cellulitis. 1. Osteomyelitis of the right second toe, second metatarsal deformity-patient is being admitted to the floor. MRI on 05/27 in [facility] system showed right second toe osteomyelitis and septic arthritis. Cellulitis improved. Patient was taken to the OR for right second toe amputation and partial second metastasis resection ID follow-up tomorrow. Patient does not want to go to long-term. continue PT and OT, continue present antibiotic coverage #2 type 2 diabetes-patient's blood sugars will be monitored, sliding scale insulin will be administered if needed #3 essential hypertension-patient will remain on his home medications Total clinical time spent by myself addressing the patient's medical issues, reviewing all of his data, and collaborating with patient's care team: 35 minutes Charges/Coding Visit Charges Inpatient E&M: 60197 Subs Hosp L2
[2024-06-14 11:49] LABS: Bedside Glucose 226 mg/dL (74-106)
[2024-06-14 16:03] VITALS: BP 136/70; PULSE 58; RESP 16; TEMP 36.7; O2SAT 97
[2024-06-14 17:21] LABS: Bedside Glucose 156 mg/dL (74-106)
[2024-06-14 21:00] VITALS: BP 160/74; PULSE 59; RESP 16; TEMP 36.4; O2SAT 95
[2024-06-14 23:38] LABS: Vancomycin, Trough Level 17.5 ug/mL (5.0-15.0)
[2024-06-15 00:02] LABS: Bedside Glucose 169 mg/dL (74-106)
[2024-06-15] MEDS: Vancomycin IV 1,000 MG/200 ML BAG 200 MG IV (00:07)
[2024-06-15] MEDS: Insulin Lispro 100 UNIT/ML INSULN.PEN SC ×2 (00:07→12:07)
--- NOTE | 2024-06-15 00:24 | PCM.RX.CS ---
Consult Antibiotic Management Pharmacy has been consulted to manage selected antibiotic: Vancomycin Type of Intervention Type of Consult: Follow-up Suspected Infection Suspected Infection: Osteomyelitis Labs Labs: Sodium 133 mmol/L (133-145) 06/10/24 07:23 Potassium 4.3 mmol/L (3.3-5.1) 06/10/24 07:23 Carbon Dioxide 17.8 mmol/L (22.0-29.0) L 06/10/24 07:23 Anion Gap 14 (5-15) 06/10/24 07:23 BUN 17 mg/dL (4-19) 06/10/24 07:23 Creatinine 0.9 mg/dL (0.8-1.3) 06/10/24 07:23 Est GFR (MDRD) Non-Af 83 (>60) 06/10/24 07:23 BUN/Creatinine Ratio 18.2 RATIO (10-20) 06/10/24 07:23 Glucose 115 mg/dL (70-99) H 06/10/24 07:23 Vancomycin Trough 17.5 ug/mL (5.0-15.0) H 06/14/24 23:11 Microbiology Microbiology: Microbiology 06/11/24 14:36 Bone - 2nd Metatarsal Bone Gram Stain - Final 06/11/24 14:36 Bone - 2nd Metatarsal Bone Wound Culture - Final No growth aerobically. 06/11/24 14:36 Bone - 2nd Metatarsal Bone Anaerobic Culture - Preliminary No growth in 48 hours. 06/11/24 14:36 Bone - 2nd Metatarsal Bone Gram Stain - Final 06/11/24 14:36 Bone - 2nd Metatarsal Bone Wound Culture - Final Staphylococcus epidermidis 06/11/24 14:36 Bone - 2nd Metatarsal Bone Anaerobic Culture - Preliminary No growth in 48 hours. 06/09/24 20:23 Blood Culture (Wb) - Right Hand Blood Culture - Preliminary No growth in 48 hours. 06/09/24 20:15 Blood Culture (Wb) - Anticubital Left Blood Culture - Preliminary No growth in 48 hours. Dosing Weight Weight used for dosin kg Estimated Creatinine Clearance Estimated Creatinine Clearance: 73 Goal Trough Goal Trough: 15-20 mcg/mL Pharmacy Plan for Drug Dosing Pharmacy Plan for Drug Dosing: Vancomycin trough level of 17.5, drawn 12hrs post-dose, was within the target range of 15-20. Will continue dosing at 1000mg q12h, and will draw another trough level in four days. Pharmacy Service will continue to monitor and adjust dosing as required. Follow-Up Labs Follow-Up Labs: Trough: Vancomycin Date/Time Labs Ordered Labs to be done on [date and time ordered]: 06/18/24 @2300
[2024-06-15 03:00] VITALS: BP 149/73; PULSE 55; RESP 16; TEMP 36.3; O2SAT 95
[2024-06-15] MEDS: metroNIDAZOLE 500 MG Tablet PO (06:18)
[2024-06-15 06:36] LABS: Bedside Glucose 149 mg/dL (74-106)
[2024-06-15 08:00] LABS: Absolute Lymphocyte Count 0.98 X10^3/uL (0.83-4.51); Absolute Neutrophil Count 2.9 X10^3/uL (2.0-7.7); Basophil# 0.06 X10^3/uL; Basophil% 1.3 % (0-1); Eosinophil# 0.18 X10^3/uL; Hematocrit 43.8 % (40-54); Hemoglobin 14.8 g/dL (13.0-16.5); Lymphocyte # 0.98 X10^3/ul (0.83-4.51); Lymphocyte % 21.7 % (19-41); Mean Corp Hgb Conc 33.8 g/dL (32-36); Mean Corpuscular Hgb 29.7 pg (27.0-32.0); Mean Corpuscular Volume 87.8 fL (80-94); Mean Platelet Vol. 8.7 fl (6.2-12.0); Monocyte# 0.38 X10^3/uL; Monocyte% 8.4 % (0-10); NRBC Flagged by Analyzer 0 % (0-5); Neutrophil # 2.89 X10^3/uL (2.7-7.7); Neutrophil % 64.2 % (47-70); Platelet Count 201 K/mm3 (150-450); RBC Distribution Width CV 12.9 % (11.6-14.6); RBC Distribution Width SD 41.1 fl (35.1-43.9); Red Blood Count 4.99 M/mm3 (4.6-6.2); White Blood Count 4.5 K/mm3 (4.4-11.0)
[2024-06-15] MEDS: Ascorbic Acid 500 MG Tablet 1000 MG PO (09:18)
[2024-06-15] MEDS: Enoxaparin 40 MG/0.4 ML Syringe SC (09:18)
[2024-06-15] MEDS: hydroCHLOROthiazide 12.5mg 12.5 MG PO (09:19)
[2024-06-15] MEDS: Zinc Sulfate 50 mg zinc (220 mg) ORAL capsule PO (09:19)
[2024-06-15] MEDS: Lactobacillis Acidophilus 1 CAP PO (09:20)
[2024-06-15] MEDS: Folic Acid 1 MG Tablet PO (09:20)
[2024-06-15] MEDS: Lisinopril 20 MG Tablet PO (09:20)
[2024-06-15] MEDS: Cholecalciferol (Vit D3) 125 MCG CAPSULE (5,000 UNITS) PO (09:20)
[2024-06-15] MEDS: Ceftriaxone 2 GM in 0.9% Normal Saline (50mL MB+) 50 ML IV (09:21)
[2024-06-15 10:45] VITALS: BP 126/82; PULSE 52; RESP 14; TEMP 36.9; O2SAT 95
--- NOTE | 2024-06-15 10:51 | NURSING ---
This RN is aware of Vital Signs taken by [employer] Student Nurse that were taken recently.
--- NOTE | 2024-06-15 11:30 | PCM.DC ---
Discharge Instructions Diet Discharge Diet: 1800 Calorie Control Diet DC O2, CPAP, BIPAP needs Home O2 Discharge instructions: No Dressing / Incision Discharge Activity: Return to Normal Activity Weight Bearing Status: Weight bearing as tolerated Dressing / Incision Call your doctor if you observe: Fever of 101 or Higher, Coldness, Increased Pain, Numbness or Tingling, Change in Color, Inability to urinate, Inability to have a bowel movement, Shortness of breath, Dizziness, Fainting spells, Swelling in the ankles, Chest pain, Prolonged hiccupping, Increased palpitations (irregular heartbeat) and Calf discomfort Follow Up Care When: IN 2 WEEKS Test Results: Test results from this visit will be discussed in further detail at your follow-up appointment, if applicable. Discharge Plan Admission Admit Date/Time: 06/09/24 22:42 Primary Reason for Your Visit: Acute osteomyelitis of right second metatarsal and second toe Attending Provider: Jose L Jones Primary Care Provider: Leti Villatoro NP Consulting Providers: Carrillo Drummond; Parker Waggoner; Dallin Bowen; Nav Huff Discharge Orders/Prescriptions Prescriptions: aston FlynnBChrystalbif-S.therm 175 mg Capsule 1 cap PO 3XD Qty: 0 0RF Rx Instructions: For 2 weeks acetaminophen 325 mg Tablet 650 mg PO Q6H PRN PRN (Reason: Pain 1-5/10 or Fever) Qty: 0 0RF cholecalciferol (vitamin D3) 125 mcg (5,000 unit) Capsule 125 mcg PO DAILY Qty: 0 0RF Rx Instructions: OTC Continued lisinopril-hydrochlorothiazide 20-12.5 mg tablet 1 tab PO DAILY Farxiga 10 mg tablet 10 mg PO DAILY metformin 500 mg tablet extended release 24 hr 500 ea PO DAILY Patient Comments: TAKE 1 TABLET BY MOUTH TWICE DAILY glimepiride 2 mg tablet 2 mg PO DAILY Discontinued sulfamethoxazole-trimethoprim 800-160 mg tablet 1 tab PO Q12.TCU Referrals / Follow Up: Leti Villatoro NP, OCCUPANCY SPECIALIST-C [Primary Care Provider] - Nasim Gudino DPM [Med Staff - Active Staff] - Within 2 Weeks Disposition Disposition (needs filled in before D/C Order can be placed): Home, Self Care
[2024-06-15 12:26] LABS: Bedside Glucose 229 mg/dL (74-106)
--- NOTE | 2024-06-15 13:04 | DS.PCM_ITS ---
Providers Date of Admission: 06/09/24 Date of Discharge: 06/15/24 Primary Care Physician: RUDOLPH Cooper Consultations 06/09/24 23:07 Consult: Infectious Disease Routine Consulting Provider: Carrillo Drummond Reason for Consult: Right 2nd Toe Osteomyelitis and Septic Arthritis. EMERGENT Consult: No Notified: Yes Date Notified: 06/10/24 Time Notified: 06:45 Method of Notification: Text Consult: Onc/Wound/harp regulator Routine Comment: Reason for Consult:: Right 2nd Toe Osteomyelitis and Septic Arthritis. Consult: Podiatry Routine Consulting Provider: Parker Waggoner Reason for Consult: Right 2nd Toe Osteomyelitis and Septic Arthritis. EMERGENT Consult: No Notified: Yes Date Notified: 06/10/24 Time Notified: 06:47 Method of Notification: Text Reason For Visit: RIGHT 2ND TOE OSTEOMYELITIS & SEPTIC ARTHRITIS Diagnosis Discharge Diagnosis (1) Acute osteomyelitis of right foot: Status: Acute Code(s): M86.171 - Other acute osteomyelitis, right ankle and foot Plan 74-year-old gentleman was admitted with right second toe osteomyelitis with localized cellulitis. 1. Osteomyelitis of the right second toe, second metatarsal deformity-patient is being admitted to the floor. MRI on 05/27 in [facility] system showed right second toe osteomyelitis and septic arthritis. Cellulitis improved. Patient was taken to the OR for right second toe amputation and partial second metastasis resection ID follow-up tomorrow. Patient does not want to go to assisted. continue PT and OT, continue present antibiotic coverage 3/3: Patient was evaluated by ID. He was discharged on 6 weeks of oral doxycycline and Augmentin. Follow-up in ID in 2 to 3 weeks #2 type 2 diabetes-patient's blood sugars will be monitored, sliding scale insulin will be administered if needed 3/3:: Glucoses reasonably controlled about 150 mg/d #3 essential hypertension-patient will remain on his home medications Discharge medication reconciliation done. Discharge follow-up instructions completed. Discharge process discussed with the patient and all questions were answered to patient's satisfaction. Follow with PCP in 1 to 2 weeks Total time spent, exact 35 minutes on discharge meds reconciliation, examination, coordination of care with nurses and ancillary staff, review of imaging and blood test and discussion with the patient on follow-up instructions. Microbiology Past 72 Hours 06/09/24 20:15 Blood Culture (Wb) - Anticubital Left Blood Culture - Final No growth in 5 days. 06/09/24 20:23 Blood Culture (Wb) - Right Hand Blood Culture - Final No growth in 5 days. 06/11/24 14:36 Bone - 2nd Metatarsal Bone Gram Stain - Final 06/11/24 14:36 Bone - 2nd Metatarsal Bone Wound Culture - Final No growth aerobically. 06/11/24 14:36 Bone - 2nd Metatarsal Bone Anaerobic Culture - Preliminary No growth in 48 hours. 06/11/24 14:36 Bone - 2nd Metatarsal Bone Gram Stain - Final 06/11/24 14:36 Bone - 2nd Metatarsal Bone Wound Culture - Final Staphylococcus epidermidis 06/11/24 14:36 Bone - 2nd Metatarsal Bone Anaerobic Culture - Preliminary No growth in 48 hours. Laboratory Results 06/10/24 07:23: Sodium 133, Potassium 4.3, Chloride Direct 102, Carbon Dioxide 17.8 L, Anion Gap 14, BUN 17, Creatinine 0.9, Estim Creat Clear Calc 72.51, Est GFR (MDRD) Non-Af 83, BUN/Creatinine Ratio 18.2, Glucose 115 H, Calcium 8.6, Phosphorus 3.0, Total Bilirubin 0.50, AST 28, ALT 17, Alkaline Phosphatase 76, Total Protein 6.3, Albumin 3.8, Globulin 2.5, Albumin/Globulin Ratio 1.5, Triglycerides 130, Cholesterol 162, LDL Cholesterol, Calc 107, VLDL Cholesterol 26, HDL Cholesterol 29 L, Cholesterol/HDL Ratio 5.64, TSH 3.600 06/14/24 16:46: POC Glucose 156 H 06/14/24 23:11: Vancomycin Trough 17.5 H 06/14/24 23:44: POC Glucose 169 H 06/15/24 06:16: POC Glucose 149 H 06/15/24 07:39: WBC 4.5, RBC 4.99, Hgb 14.8, Hct 43.8, MCV 87.8, MCH 29.7, MCHC 33.8, RDW Std Deviation 41.1, RDW Coeff of Chad 12.9, Plt Count 201, MPV 8.7, Immature Gran % (Auto) 0.400, Neut % (Auto) 64.2, Lymph % (Auto) 21.7, [place] % (Auto) 8.4, Eos % (Auto) 4.0, Baso % (Auto) 1.3 H, Absolute Neuts (auto) 2.9, Absolute Lymphs (auto) 0.98, Nucleated RBC % 0, Sodium Pending, Potassium Pending, Chloride Direct Pending, Carbon Dioxide Pending, Anion Gap Pending, BUN Pending, Creatinine Pending, Est GFR (MDRD) Non-Af Pending, BUN/Creatinine Ratio Pending, Glucose Pending, Calcium Pending 06/15/24 12:05: POC Glucose 229 H Medications at Discharge Home Medications dapagliflozin propanediol 10 mg tablet (Farxiga) 10 mg PO DAILY 12/29/21 lisinopril 20 mg-hydrochlorothiazide 12.5 mg tablet 1 tab PO DAILY 12/29/21 metformin 500 mg tablet,extended release 24 hr 500 ea PO DAILY 12/29/21 glimepiride 2 mg tablet 2 mg PO DAILY 06/09/24 L.acidophil,salivari-Bifido bifidum-Strep thermoph 175 mg capsule 1 cap PO 3XD #0 caps 06/15/24 acetaminophen 325 mg tablet 650 mg (2 x 325 mg) PO Q6H PRN PRN Pain 1-5/10 or Fever #0 tabs 06/15/24 amoxicillin 875 mg-potassium clavulanate 125 mg tablet 1 tab PO BID #76 tabs 06/15/24 cholecalciferol (vitamin D3) 125 mcg (5,000 unit) capsule 125 mcg PO DAILY #0 caps 06/15/24 doxycycline hyclate 100 mg capsule 100 mg PO BID #76 caps 06/15/24 Physical Exam Narrative Seen and examined. No acute issues. Patient ready to go home. Patient had right second toe and metatarsal amputation for osteomyelitis. No fever. On IV antibiotics. ID follow-up tomorrow. Physical exam General: Alert, Oriented x3, Cooperative HEENT: Atraumatic, PERRLA, EOMI, Normocephalic Oral: No Gingival or Mucosal Lesions/ Ulcerations Neck: Supple, No JVD, Negative Carotid Bruits Chest wall/Lungs: Air entry diminished in bilateral lung bases. No crepitation/rhonchi Cardiovascular: Regular rate, Regular Rhythm, Normal S1, Normal S2, No M/G/R Abdomen: Bowel Sounds Present, Soft, Non Tender, Non-Distended : No dysuria. No renal angle tenderness. No suprapubic tenderness. Extremities: No edema, Capillary Refill Less than 3 Seconds Skin: Right foot surgical dressing is dry. No acute tenderness. Cellulitis improved Musculoskeletal: No Tenderness to Palpation of Joints or Extremities ROM restricted over right foot. Neurological: Cranial nerves II-XII grossly intact, DTR 2+/4. No acute focal neurological deficit. Psych/Mental Status: Normal Affect, Appropriate. Weight / BMI Weight Weight: 196 lb 6.91 oz Body Mass Index (BMI) 30.8 ABG / Lab / Microbiology Data 06/15/24 07:39 06/10/24 07:23 Laboratory: Laboratory Results - last 24 hr 06/10/24 07:23: Sodium 133, Potassium 4.3, Chloride Direct 102, Carbon Dioxide 17.8 L, Anion Gap 14, BUN 17, Creatinine 0.9, Estim Creat Clear Calc 72.51, Est GFR (MDRD) Non-Af 83, BUN/Creatinine Ratio 18.2, Glucose 115 H, Calcium 8.6, Phosphorus 3.0, Total Bilirubin 0.50, AST 28, ALT 17, Alkaline Phosphatase 76, Total Protein 6.3, Albumin 3.8, Globulin 2.5, Albumin/Globulin Ratio 1.5, Triglycerides 130, Cholesterol 162, LDL Cholesterol, Calc 107, VLDL Cholesterol 26, HDL Cholesterol 29 L, Cholesterol/HDL Ratio 5.64, TSH 3.600 06/14/24 16:46: POC Glucose 156 H 06/14/24 23:11: Vancomycin Trough 17.5 H 06/14/24 23:44: POC Glucose 169 H 06/15/24 06:16: POC Glucose 149 H 06/15/24 07:39: WBC 4.5, RBC 4.99, Hgb 14.8, Hct 43.8, MCV 87.8, MCH 29.7, MCHC 33.8, RDW Std Deviation 41.1, RDW Coeff of Chad 12.9, Plt Count 201, MPV 8.7, Immature Gran % (Auto) 0.400, Neut % (Auto) 64.2, Lymph % (Auto) 21.7, [place] % (Auto) 8.4, Eos % (Auto) 4.0, Baso % (Auto) 1.3 H, Absolute Neuts (auto) 2.9, Absolute Lymphs (auto) 0.98, Nucleated RBC % 0 06/15/24 12:05: POC Glucose 229 H Microbiology: Microbiology 06/09/24 20:15 Blood Culture (Wb) - Anticubital Left Blood Culture - Final No growth in 5 days. 06/09/24 20:23 Blood Culture (Wb) - Right Hand Blood Culture - Final No growth in 5 days. 06/11/24 14:36 Bone - 2nd Metatarsal Bone Gram Stain - Final 06/11/24 14:36 Bone - 2nd Metatarsal Bone Wound Culture - Final No growth aerobically. 06/11/24 14:36 Bone - 2nd Metatarsal Bone Anaerobic Culture - Preliminary No growth in 48 hours. 06/11/24 14:36 Bone - 2nd Metatarsal Bone Gram Stain - Final 06/11/24 14:36 Bone - 2nd Metatarsal Bone Wound Culture - Final Staphylococcus epidermidis 06/11/24 14:36 Bone - 2nd Metatarsal Bone Anaerobic Culture - Preliminary No growth in 48 hours. D/C Instructions Discharge Diet: 1800 Calorie Control Diet Weight Bearing Status: Weight bearing as tolerated Call your doctor if you observe: Fever of 101 or Higher, Coldness, Increased Pain, Numbness or Tingling, Change in Color, Inability to urinate, Inability to have a bowel movement, Shortness of breath, Dizziness, Fainting spells, Swelling in the ankles, Chest pain, Prolonged hiccupping, Increased palpitations (irregular heartbeat) and Calf discomfort DC O2, CPAP, BIPAP Needs Home O2 Discharge instructions: No When: IN 2 WEEKS Meaningful Use Info Meaningful Use Meaningful Use Diagnoses (Choose all that apply): None applicable Ischemic Stroke Statin Dosing Therapy Reference: STATIN DOSE THERAPY REFERENCE: * Patients > 75 years receive moderate or high dose statin therapy. * Patients 75 years or YOUNGER should receive HIGH intensity statin dose unless contraindicated. You will be required to document reason for non-treatment if statin daily dose does not meet guidelines. HIGH DOSE STATIN THERAPY DAILY Atorvastatin > than or = to 40 mg Rosuvastatin > than or = to 20 mg Amlodipine + Atorvastatin > than or = to 2.5/40 mg Ezetimibe + Simvastatin 10/80 mg Simvastatin 80mg Discharge Plan Admission Admit Date/Time: 06/09/24 22:42 Primary Reason for Your Visit: Acute osteomyelitis of right second metatarsal and second toe Attending Provider: Jose L Jones Primary Care Provider: Leti Villatoro NP Consulting Providers: Carrillo Drummond; Parker Waggoner; Dallin Bowen; Nav Huff Discharge Orders/Prescriptions Prescriptions: Emily Flynnbif-S.therm 175 mg Capsule 1 cap PO 3XD Qty: 0 0RF Rx Instructions: For 2 weeks acetaminophen 325 mg Tablet 650 mg PO Q6H PRN PRN (Reason: Pain 1-5/10 or Fever) Qty: 0 0RF cholecalciferol (vitamin D3) 125 mcg (5,000 unit) Capsule 125 mcg PO DAILY Qty: 0 0RF Rx Instructions: OTC doxycycline hyclate 100 mg capsule 100 mg PO BID Qty: 76 0RF amoxicillin-pot clavulanate 875-125 mg tablet 1 tab PO BID Qty: 76 0RF Continued lisinopril-hydrochlorothiazide 20-12.5 mg tablet 1 tab PO DAILY Farxiga 10 mg tablet 10 mg PO DAILY metformin 500 mg tablet extended release 24 hr 500 ea PO DAILY Patient Comments: TAKE 1 TABLET BY MOUTH TWICE DAILY glimepiride 2 mg tablet 2 mg PO DAILY Discontinued sulfamethoxazole-trimethoprim 800-160 mg tablet 1 tab PO Q12.TCU Referrals / Follow Up: Nasim Gudino DPM [Med Staff - Active Staff] - Within 2 Weeks Leti Villatoro NP, [employer] DRIVER-C [Primary Care Provider] - Disposition Disposition (needs filled in before D/C Order can be placed): Home, Self Care Charges/Coding Visit Charges Inpatient E&M: 50994 Disch Hosp >30min
--- NOTE | 2024-06-15 13:25 | CASEMGMT ---
RN CM noted DC order in, into pt room. Pt denies any home going needs. Pt does not have any questions at this time.
[2024-06-15 13:53] VITALS: BP 155/72; PULSE 60; RESP 17; TEMP 36.6; O2SAT 96
--- NOTE | 2024-06-15 13:55 | PCM.PN.ID ---
Physical Exam Narrative Feeling better, no fever, no n/v/d. Const alert and no apparent distress General Appearance: cooperative Resp normal air movement and clear to auscultation bilaterally Cardio regular rate and regular rhythm GI soft to palpation, non-tender and non-distended Skin Skin Narrative: foot wrapped ID ID: Route of nutrition/ use of supplements: [] Nutritional Intake: [] IV Site: [] Ruiz Catheter: [] Assessment & Plan Assessment/Plan (1) Septic arthritis: QUALIFIERS: Septic arthritis location: foot Septic arthritis organism: due to unspecified organism Laterality: right Qualified Code(s): M00.9 - Pyogenic arthritis, unspecified PLAN: MRI 05/27/24 in [facility] system with R 2nd toe osteo and septic arthritis. Cellulitis improved. Taken to OR 06/11/[address] Gudino for toe amp and partial 2nd met resection. Clearance cx with CoNS. Ok for home with 6 weeks po doxy and augmentin. Wrote rx, ID followup in 2-3 weeks. Will follow, d/w correctional case manager (2) Osteomyelitis: QUALIFIERS: Osteomyelitis type: unspecified type Osteomyelitis location: foot Laterality: right Qualified Code(s): M86.9 - Osteomyelitis, unspecified (3) Diabetes mellitus: QUALIFIERS: Diabetes mellitus type: type 2 Diabetes mellitus superintendent terminal insulin use: without superintendent terminal use Diabetes mellitus complication status: with skin complications Diabetes mellitus complication detail: with foot ulcer Qualified Code(s): E11.621 - Type 2 diabetes mellitus with foot ulcer; L97.509 - Non-pressure chronic ulcer of other part of unspecified foot with unspecified severity
[2024-06-15 15:42] LABS: Anion Gap 11 (5-15); BUN 20 mg/dL (4-19); BUN/Creat Ratio 30.1 RATIO (10-20); Calcium 9.2 mg/dL (7.6-11.0); Carbon Dioxide 21.6 mmol/L (22.0-29.0); Chloride 100 mmol/L (96-108); Creatinine, Serum 0.66 mg/dL (0.70-1.20); EST Glomerular Filtration Rate 96 (>60); Estimated Creatinine Clearance 82.36 ml/min (50-250); Glucose 157 mg/dL (70-99); Potassium 3.7 mmol/L (3.3-5.1); Sodium Level 133 mmol/L (133-145)
== END 2024-06-15 14:25 | disposition home or self-care (01) | DRG 617 ==
LOC: ED 21:58 → MS3 22:53
PROVIDERS: Internal Medicine; Internal Medicine Infectious Disease; Podiatrist; Admitting Provider Internal Medicine; Emergency Provider Surgery; PCP Nurse Practitioner Adult Health; Visit Provider Internal Medicine
PROC: 0Y6M0Z5 Detachment at Right Foot, Complete 2nd Ray, Open Approach (ICD-10-PCS; principal; 2024-06-11 07:45)
DX: E11.621 Type 2 diabetes mellitus with foot ulcer (principal); M00.871 Arthritis due to other bacteria, right ankle and foot; M86.171 Other acute osteomyelitis, right ankle and foot; E11.40 Type 2 diabetes mellitus with diabetic neuropathy, unspecified; L03.031 Cellulitis of right toe; E66.3 Overweight; I10 Essential (primary) hypertension; L97.519 Non-pressure chronic ulcer of other part of right foot with unspecified severity; E78.5 Hyperlipidemia, unspecified; E11.69 Type 2 diabetes mellitus with other specified complication; K44.9 Diaphragmatic hernia without obstruction or gangrene; Z79.84 Long term (current) use of oral hypoglycemic drugs; Z68.29 Body mass index [BMI] 29.0-29.9, adult; Z79.2 Long term (current) use of antibiotics; Z87.442 Personal history of urinary calculi
CPT/HCPCS: 36415; 73630; 80048; 80053; 80061; 80202; 82962; 83036; 83605; 83735; 84100; 84443; 85025; 87015; 87040; 87070; 87075; 87077; 87102; 87116; 87176; 87186; 87205; 87206; 88305; 88311; 93005; 93923; 94668; 97802; 97803; 99285; A4216; J0696; J2405

== ENCOUNTER 2025-03-29 10:37 | Emergency (ER) | payer MEDICARE, SELFPAY ==
[2025-03-29 10:38] VITALS: BP 164/79; PULSE 79; RESP 18; TEMP 36.6; O2SAT 96; BMI 31.1
--- NOTE | 2025-03-29 11:10 | EX.ED.DYSGE1 ---
HPI History of Present Illness Chief Complaint: Rash Narrative Narrative: Chief complaint and HPI: 79-year-old male with past medical history of DM, HTN, HLD presents for evaluation of allergic rash. Patient states he was recently started on his Trulicity 2 weeks ago. He states 2 days after the injection he developed a drug rash. He was seen at [facility] in which he was given Benadryl and prednisone. Patient states his symptoms improved with the prednisone however shortly reoccurred after. He states it did raise his sugar however he checked it frequently. He endorses itching and a body rash. He denies any fever, chills, nausea, vomiting. Review of systems: See HPI Medications: As listed on the chart Allergies: As listed on the chart PFSH: Per chart Vital signs: As listed on the chart. Reviewed. Physical exam: Gen: A&O x3, NAD Head: Normocephalic, atraumatic Eyes: No sclera icterus, conjunctiva clear ENT: Moist mucous membranes CV: RRR, no murmurs Resp: Lungs CTA BL, no w/r/c GI: Abd soft, non-distended, non-tender, no r/r/g Musc: Moves all extremities Skin: Skin is very dry, patient has a morbilliform rash located mostly on the chest, back, abdomen, and bilateral arms. Pruritic to touch. No lacerations or abrasions. No vesicles, petechiae/purpura, no skin sloughing or mucosal involvement, no crepitus, negative Nikolsky sign. No involvement of palms and soles. No weeping or drainage. Psych: Cooperative, appropriate mood and affect [facility] Medical History History of renal calculi History of rectal cancer Neuropathy Hiatal hernia Sleep apnea History of diverticulosis History of colon polyps Hyperlipidemia HTN (hypertension) Diabetes mellitus Home Medications ?Medication ?Instructions ?Recorded ?Last Taken ?Type lisinopril 20 1 tab PO DAILY 12/29/21 03/28/25 History mg-hydrochlorothiazide 12.5 mg tablet acetaminophen 325 mg tablet 650 mg (2 x 325 mg) PO Q6H PRN PRN 06/15/24 Unknown Rx Pain 1-5/10 or Fever #0 tabs amlodipine 5 mg tablet 5 mg PO DAILY 03/29/25 03/28/25 History dulaglutide 0.75 mg/0.5 mL 0.75 mg subcut QWEEK 03/29/25 03/15/25 History subcutaneous pen injector (Trulicity) famotidine 20 mg tablet 20 mg PO BID PRN 03/29/25 03/28/25 History hydroxyzine HCl 10 mg tablet 25 mg PO TID PRN PRN itch 03/29/25 03/29/25 History insulin lispro 100 unit/mL 1 unit subcut .COMPLEX PRN 03/29/25 Unknown History subcutaneous cartridge (Humalog hyperglycemia U-100 Insulin) lisinopril 20 mg tablet 20 mg PO DAILY 03/29/25 03/28/25 History prednisone 20 mg tablet 40 mg PO DAILY 03/29/25 03/28/25 History sildenafil 100 mg tablet 100 mg PO PRN 03/29/25 Unknown History Allergy/AdvReac Type Severity Reaction Status Date / Time dulaglutide (From Trulicity) Allergy Intermediate Rash Verified 03/29/25 10:39 Family History Mother Hypertension Breast cancer Father Colon cancer Surgical History History of colonoscopy (~2007) Status post ORIF of fracture of ankle History of foot surgery History of arthroscopic knee surgery History of nephrolithotomy with removal of calculi History of esophagogastroduodenoscopy (EGD) History of cholecystectomy History of colonoscopy (~2018) Social History Smoking Status: Never smoker EXAM Physical Exam Const Vital Signs: 03/29/25 10:38 Temperature 97.9 F Temperature Source Temporal Pulse Rate 79 Respiratory Rate 18 Blood Pressure 164/79 H Blood Pressure Mean 107 Pulse Ox 96 Oxygen Delivery Method Room Air MDM MDM MDM Narrative Medical decision making narrative: 79-year-old male with past medical history of DM, HTN, HLD presents for evaluation of allergic rash. Patient states he was recently started on his Trulicity 2 weeks ago. He states 2 days after the injection he developed a drug rash. He was seen at [facility] in which he was given Benadryl and prednisone. Patient states his symptoms improved with the prednisone however shortly reoccurred after. He states it did raise his sugar however he checked it frequently. He endorses itching and a body rash. He denies any fever, chills, nausea, vomiting. On presentation, patient no acute distress except for hypertension with patient has a history of it. See physical exam findings. Patient has a drug rash. His skin is very dry. Recommended [id number] lotion and [id number] Benadryl as needed for itching. Will place him back on a 5-day course of prednisone. Patient was educated to monitor his sugars secondary to diabetes. Will place him on Pepcid. Follow-up with primary care physician and dermatology. He confirmed understand the plan. Patient stable to discharge home. Impression: 1. Drug rash to Trulicity 2. HTN with history of HTN Discharge Plan Triage Chief Complaint: Rash ED Provider: Sabino Mcarthur Dx/Rx/DC Orders Prescriptions: No Action lisinopril-hydrochlorothiazide 20-12.5 mg tablet 1 tab PO DAILY Patient Comments: takes lisino 20mg AND lisino/hctz 20/12.5 acetaminophen 325 mg Tablet 650 mg PO Q6H PRN PRN (Reason: Pain 1-5/10 or Fever) Qty: 0 0RF famotidine 20 mg tablet 20 mg PO BID PRN Trulicity 0.75 mg/0.5 mL pen injector 0.75 mg subcut QWEEK lisinopril 20 mg tablet 20 mg PO DAILY Patient Comments: takes lisino 20mg AND lisino/hctz 20/12.5 prednisone 20 mg tablet 40 mg PO DAILY sildenafil 100 mg tablet 100 mg PO PRN hydroxyzine HCl 10 mg tablet 25 mg PO TID PRN PRN (Reason: itch) amlodipine 5 mg tablet 5 mg PO DAILY Humalog U-100 Insulin 100 unit/mL cartridge 1 unit subcut .COMPLEX PRN (Reason: hyperglycemia) Rx Instructions: 1 unit subcutaneously pt can take 1 unit for blood sugar every 50 over 150 PRN Primary Care Provider: Leti Villatoro NP Referrals: Leti Villatoro NP, [employer] [Primary Care Provider, Medical] Print Language: [place]
[2025-03-29 12:01] VITALS: BP 164/79; PULSE 79; RESP 18; TEMP 36.6; O2SAT 96
== END 2025-03-29 12:01 | disposition home or self-care (01) ==
LOC: ED 11:33
PROVIDERS: Emergency Provider Surgery; PCP Nurse Practitioner Adult Health; Visit Provider Surgery
DX: L27.0 Generalized skin eruption due to drugs and medicaments taken internally (principal); E11.9 Type 2 diabetes mellitus without complications; Z79.4 Long term (current) use of insulin; I10 Essential (primary) hypertension; E78.5 Hyperlipidemia, unspecified; R21 Rash and other nonspecific skin eruption; Z79.899 Other long term (current) drug therapy; Z79.85 Long-term (current) use of injectable non-insulin antidiabetic drugs
CPT/HCPCS: 99282